=== PATIENT | female | born 1990 | race American Indian/Alaskan Native ===

== ENCOUNTER 2017-06-08 14:28 | Emergency (ER) | payer MEDICAID ==
[2017-06-08 14:54] VITALS: BP 110/81
[2017-06-08] MEDS ORDERED: Sodium Chloride 0.9% 10 ML Syringe FLUSH PRN (15:46)
[2017-06-08] MEDS ORDERED: Sodium Chloride 0.9% 1,000 ML IV ONE (15:53)
[2017-06-08] MEDS ORDERED: Ondansetron 4 MG/2 ML SDV IV ONE ×2 (15:54→17:33)
[2017-06-08] MEDS ORDERED: Morphine 2 MG/ML Syringe IVPUSH ONE (15:54)
[2017-06-08] MEDS ORDERED: Midazolam 1 MG/ML 2 ML SDV IVPUSH ONE ×2 (15:55→16:57)
[2017-06-08] MEDS ORDERED: Lidocaine 1% 30 ML SDV INJECT ONE (15:57)
[2017-06-08 16:21] LABS: CHLORIDE,CL 104 mmol/L (101-111); SODIUM,NA 138 mmol/L (135-145)
[2017-06-08] MEDS ORDERED: Midazolam 1 MG/ML 2 ML SDV ONE (16:43)
--- NOTE | 2017-06-09 14:01 | EDM.PDOC ---
Scribed by Bridget De La Rosa 06/08/17 [id number] for Noelle Spring NP ED HPI GENERAL MEDICAL PROBLEM - General Chief Complaint: Skin Complaint Stated Complaint: BOIL ? Time Seen by Provider: 06/08/17 15:43 Source of Information: Reports: Patient, RN, RN Notes Reviewed History Limitations: Reports: No Limitations - History of Present Illness INITIAL COMMENTS - FREE TEXT/NARRATIVE: Patient presents to ER with complaint of boil to right buttock. She states she thought it was a pimple which began about 5 days ago. Patient rates pain 10/10. She admits to fever/chills. Denies having any sores like this in the past. Duration: Getting Worse Location: Reports: Other (buttock) Quality: Reports: Ache Severity: Severe Improves with: Reports: None Worsens with: Reports: None Associated Symptoms: Reports: No Other Symptoms Right buttock Pain Score (Numeric/FACES): 9 - Related Data Allergies Allergy/AdvReac Type Severity Reaction Status Date / Time cephalexin [Cephalexin] Allergy Hives Verified 06/08/17 14:47 Home Meds: Home Meds Acetaminophen [Tylenol] 650 mg PO Q4H PRN 06/05/16 [History] Ranitidine [Zantac] 150 mg PO BID PRN 06/05/16 [History] Pseudoephedrine HCl [Sudafed 24-Hour] 240 mg PO DAILY PRN 06/08/17 [History] Past Medical History - Past Health History Medical/Surgical History: Denies Medical/Surgical History HEENT History: Reports: None Cardiovascular History: Reports: None Respiratory History: Reports: None Gastrointestinal History: Reports: GERD Genitourinary History: Reports: None 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: 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, , Spontaneous Musculoskeletal History: Reports: None Neurological History: Reports: None Psychiatric History: Reports: Anxiety, Depression Endocrine/Metabolic History: Reports: None Hematologic History: Reports: None Immunologic History: Reports: None Oncologic (Cancer) History: Reports: None Dermatologic History: Reports: Other (See Below) Other Dermatologic History: boils - Infectious Disease History Infectious Disease History: Reports: MRSA - Past Surgical History Head Surgeries/Procedures: Reports: None GI Surgical History: Reports: Cholecystectomy Female Surgical History: Reports: Section Social & Family History - Family History Family Medical History: Noncontributory Cardiac: Reports: Hypertension (Mother Maternal grandmother) OBGYN: Reports: Other (See Below) Neurological: Reports: Migraines (Brother) Endocrine/Metabolic: Reports: Diabetes, type II (Paternal grandmother) - Tobacco Use Smoking Status *Q: Current Every Day Smoker Years of Tobacco use: 2 Packs/Tins Daily: 1 Used Tobacco, but Quit: No Second Hand Smoke Exposure: No - Caffeine Use Caffeine Use: Reports: Soda - Alcohol Use Days Per Week of Alcohol Use: 0 - Recreational Drug Use Recreational Drug Use: No Drug Use in Last 12 Months: Yes Recreational Drug Type: Reports: Marijuana/Hashish Recreational Drug Use Frequency: Monthly Recreational Drug Last Use: 3 weeks ago ED ROS GENERAL - Review of Systems Review Of Systems: ROS reveals no pertinent complaints other than HPI. ED EXAM, SKIN/RASH Exam: See Below Exam Limited By: No Limitations General Appearance: Anxious (very.), Other (Writhing in the bed.) Eye Exam: Bilateral Eye: Normal Inspection Ears: Normal External Exam, Normal Canal, Hearing Grossly Normal, Normal TMs Nose: Normal Inspection, Normal Mucosa, No Blood Throat/Mouth: Normal Inspection, Normal Lips, Normal Teeth, Normal Gums, Normal Oropharynx, Normal Voice, No Airway Compromise Head: Atraumatic, Normocephalic Neck: Normal Inspection, Supple, Non-Tender, Full Range of Motion Respiratory/Chest: No Respiratory Distress, Lungs Clear, Normal Breath Sounds, No Accessory Muscle Use, Chest Non-Tender Cardiovascular: Normal Peripheral Pulses, Regular Rate, Rhythm, No Edema, No Gallop, No JVD, No Murmur, No Rub GI/Abdominal: Normal Bowel Sounds, Soft, Non-Tender, No Organomegaly, No Distention, No Abnormal Bruit, No Mass (Female) Exam: Deferred Rectal (Female) Exam: Deferred Back Exam: Normal Inspection, Full Range of Motion, NT Extremities: Normal Inspection, Normal Range of Motion, Non-Tender, No Pedal Edema, Normal Capillary Refill Neurological: Alert, Oriented, CN II-XII Intact, Normal Cognition, Normal Gait, Normal Reflexes, No Motor/Sensory Deficits Psychiatric: Anxious, Tearful, Other (extra pyrimidial movements.) Skin: Other ([id number] erythema indurate abscess.) Lymphatic: No Adenopathy Course - Vital Signs Last Recorded V/S: Last Vital Signs Temp 97.6 F 06/08/17 14:49 Pulse 142 H 06/08/17 14:49 Resp 24 H 06/08/17 14:49 BP 110/81 06/08/17 14:49 Pulse Ox 100 06/08/17 14:49 - Orders/Labs/Meds Orders: Active Orders 24 hr Category Date Time Status Peripheral IV Care [RC] . DIRECTED Care 06/08/17 15:47 Active CULTURE WOUND [RM] Stat Lab 06/08/17 16:40 Received Sodium Chloride 0.9% [Normal Saline] 1,000 ml Med 06/08/17 15:53 Active IV .BOLUS Sodium Chloride 0.9% [Saline Flush] Med 06/08/17 15:46 Active 10 ml FLUSH ASDIRECTED PRN Peripheral IV Insertion Adult [OM.PC] Stat Oth 06/08/17 15:46 Ordered Medication Orders Sodium Chloride (Normal Saline) 1,000 mls @ 250 mls/hr IV .BOLUS ONE Stop: 06/08/17 19:52 Last Admin: 06/08/17 16:15 Dose: 250 mls/hr Sodium Chloride (Saline Flush) 10 ml FLUSH ASDIRECTED PRN PRN Reason: Keep Vein Open Last Admin: 06/08/17 16:14 Dose: 10 ml Labs: Laboratory Tests 06/08/17 06/08/17 06/08/17 Range/Units 15:54 15:54 15:54 WBC 13.7 H (5.0-10.0) 10^3/uL RBC 4.33 (4.2-5.4) 10^6/uL Hgb 12.2 (12.0-16.0) g/dL Hct 36.3 L (37.0-47.0) % MCV 83.8 D (80-100) fL MCH 28.2 (27.0-34.0) pg MCHC 33.6 (33.0-35.0) g/dL Plt Count 347 (150-450) 10^3/uL Neut % (Auto) 79.2 H (42.2-75.2) % Lymph % (Auto) 12.5 L (20.5-50.1) % Edmonson % (Auto) 7.8 (2-8) % Eos % (Auto) 0.4 L (1.0-3.0) % Baso % (Auto) 0.1 (0.0-1.0) % Sodium 138 (135-145) mmol/L Potassium 3.3 L (3.6-5.0) mmol/L Chloride 104 (101-111) mmol/L Carbon Dioxide 26.0 (21.0-31.0) mmol/L Anion Gap 11.3 BUN 20 H (7-18) mg/dL Creatinine 0.9 (0.6-1.3) mg/dL Est Cr Clr Drug Dosing 74.26 mL/min Estimated GFR (MDRD) > 60 BUN/Creatinine Ratio 22.22 Glucose 81 (74-105) mg/dL Calcium 9.1 (8.4-10.2) mg/dl Total Bilirubin 0.6 (0.2-1.0) mg/dL AST 27 (10-42) IU/L ALT 15 (10-60) IU/L Alkaline Phosphatase 68 (42-121) IU/L Total Protein 7.4 (6.7-8.2) g/dl Albumin 3.9 (3.2-5.5) g/dl Globulin 3.5 Albumin/Globulin Ratio 1.11 Urine Color (YELLOW) Urine Appearance (CLEAR) Urine pH (5.0-9.0) Ur Specific Rudy (1.005-1.030) Urine Protein (NEGATIVE) Urine Glucose (UA) (NEGATIVE) Urine Ketones (NEGATIVE) Urine Occult Blood (NEGATIVE) Urine Nitrite (NEGATIVE) Urine Bilirubin (NEGATIVE) Urine Urobilinogen (0.2-1.0) mg/dL Ur Leukocyte Esterase (NEGATIVE) Urine RBC /HPF Urine WBC (0-5/HPF) /HPF Ur Epithelial Cells /HPF Amorphous Sediment (0/HPF) /HPF Urine Bacteria (0-FEW/HPF) /HPF Urine Mucus /LPF Urine HCG, Qual Urine Opiates Screen (NEGATIVE) Ur Oxycodone Screen (NEGATIVE) Urine Methadone Screen (NEGATIVE) Ur Barbiturates Screen (NEGATIVE) U Tricyclic Antidepress (NEGATIVE) Ur Phencyclidine Scrn (NEGATIVE) Ur Amphetamine Screen (NEGATIVE) U Methamphetamines Scrn (NEGATIVE) Urine MDMA Screen (NEGATIVE) U Benzodiazepines Scrn (NEGATIVE) Urine Cocaine Screen (NEGATIVE) U Marijuana (THC) Screen (NEGATIVE) Ethyl Alcohol < 5 mg/dL 02/25/18 02/25/18 02/25/18 Range/Units 16:00 16:00 16:00 WBC (5.0-10.0) 10^3/uL RBC (4.2-5.4) 10^6/uL Hgb (12.0-16.0) g/dL Hct (37.0-47.0) % MCV (80-100) fL MCH (27.0-34.0) pg MCHC (33.0-35.0) g/dL Plt Count (150-450) 10^3/uL Neut % (Auto) (42.2-75.2) % Lymph % (Auto) (20.5-50.1) % [place]monson % (Auto) (2-8) % Eos % (Auto) (1.0-3.0) % Baso % (Auto) (0.0-1.0) % Sodium (135-145) mmol/L Potassium (3.6-5.0) mmol/L Chloride (101-111) mmol/L Carbon Dioxide (21.0-31.0) mmol/L Anion Gap BUN (7-18) mg/dL Creatinine (0.6-1.3) mg/dL Est Cr Clr Drug Dosing mL/min Estimated GFR (MDRD) BUN/Creatinine Ratio Glucose (74-105) mg/dL Calcium (8.4-10.2) mg/dl Total Bilirubin (0.2-1.0) mg/dL AST (10-42) IU/L ALT (10-60) IU/L Alkaline Phosphatase (42-121) IU/L Total Protein (6.7-8.2) g/dl Albumin (3.2-5.5) g/dl Globulin Albumin/Globulin Ratio Urine Color Lynne (YELLOW) Urine Appearance Cloudy (CLEAR) Urine pH 5.5 (5.0-9.0) Ur Specific Rudy >= 1.030 (1.005-1.030) Urine Protein 100 H (NEGATIVE) Urine Glucose (UA) Negative (NEGATIVE) Urine Ketones 80 H (NEGATIVE) Urine Occult Blood Negative (NEGATIVE) Urine Nitrite Negative (NEGATIVE) Urine Bilirubin Small H (NEGATIVE) Urine Urobilinogen 0.2 (0.2-1.0) mg/dL Ur Leukocyte Esterase Negative (NEGATIVE) Urine RBC 0-5 /HPF Urine WBC 0-5 (0-5/HPF) /HPF Ur Epithelial Cells Moderate H /HPF Amorphous Sediment Few (0/HPF) /HPF Urine Bacteria Few (0-FEW/HPF) /HPF Urine Mucus Few H /LPF Urine HCG, Qual Negative Urine Opiates Screen Negative (NEGATIVE) Ur Oxycodone Screen Negative (NEGATIVE) Urine Methadone Screen Negative (NEGATIVE) Ur Barbiturates Screen Negative (NEGATIVE) U Tricyclic Antidepress Negative (NEGATIVE) Ur Phencyclidine Scrn Negative (NEGATIVE) Ur Amphetamine Screen Positive H (NEGATIVE) U Methamphetamines Scrn Positive H (NEGATIVE) Urine MDMA Screen Positive H (NEGATIVE) U Benzodiazepines Scrn Negative (NEGATIVE) Urine Cocaine Screen Negative (NEGATIVE) U Marijuana (THC) Screen Positive H (NEGATIVE) Ethyl Alcohol mg/dL Meds: Medications Generic Name Dose Route Start Last Admin Trade Name Freq PRN Reason Stop Dose Admin Sodium Chloride 1,000 mls @ 250 mls/hr 06/08/17 15:53 06/08/17 16:15 Normal Saline IV 06/08/17 19:52 250 mls/hr .BOLUS ONE Administration Sodium Chloride 10 ml 06/08/17 15:46 06/08/17 16:14 Saline Flush FLUSH 10 ml ASDIRECTED PRN Administration Keep Vein Open Discontinued Medications Generic Name Dose Route Start Last Admin Trade Name Freq PRN Reason Stop Dose Admin Vancomycin HCl 1 gm/ Sodium 250 mls @ 167 mls/hr 06/08/17 15:54 06/08/17 16: 16 Chloride IV 06/08/17 17:23 167 mls/hr ONETIME ONE Administration Lidocaine HCl 30 ml 06/08/17 15:57 06/08/17 16:16 Xylocaine-Mpf 1% INJECT 06/08/17 15:58 30 ml ONETIME ONE Administration Midazolam HCl 1 mg 06/08/17 15:55 06/08/17 16:14 Versed 1 Mg/Ml IVPUSH 06/08/17 15:56 1 mg ONETIME ONE Administration Midazolam HCl Confirm 06/08/17 16:43 06/08/17 16:59 Versed 1 Mg/Ml Administered 06/08/17 16:44 Not Given Dose 2 mg .ROUTE .STK-MED ONE Midazolam HCl 1 mg 06/08/17 16:57 06/08/17 16:45 Versed 1 Mg/Ml IVPUSH 06/08/17 16:58 1 mg ONETIME ONE Administration Morphine Sulfate 2 mg 06/08/17 15:54 06/08/17 16:15 Morphine IVPUSH 06/08/17 15:55 2 mg ONETIME ONE Administration Ondansetron HCl 4 mg 06/08/17 15:54 06/08/17 16:14 Zofran IV 06/08/17 15:55 4 mg ONETIME ONE Administration Ondansetron HCl 4 mg 06/08/17 17:33 06/08/17 17:37 Zofran IV 06/08/17 17:34 4 mg ONETIME ONE Administration Departure - Departure Time of Disposition: 17:17 Disposition: Home, Self-Care 01 Condition: Fair Clinical Impression: Abscess Cellulitis Qualifiers: Site of cellulitis: buttock Qualified Code(s): L03.317 - Cellulitis of buttock - Discharge Information Instructions: Skin Abscess, [id number], Community-Associated MRSA, Cellulitis , Adult, [id number] Forms: ED Department Discharge Additional Instructions: RX: Doxycycline, Bactroban, Percocet Follow up with your primary care facility right away in the morning. Have dressings changed and wound repacked tomorrow. Tylenol and/or ibuprofen as directed for fever/pain - My Orders Last 24 Hours: My Active Orders 06/08/17 15:46 Sodium Chloride 0.9% [Saline Flush] 10 ml FLUSH ASDIRECTED PRN Peripheral IV Insertion Adult [OM.PC] Stat 06/08/17 15:47 Peripheral IV Care [RC] . DIRECTED 06/08/17 15:53 Sodium Chloride 0.9% [Normal Saline] 1,000 ml IV .BOLUS 06/08/17 16:40 CULTURE WOUND [RM] Stat - Assessment/Plan Last 24 Hours: My Active Orders 06/08/17 15:46 Sodium Chloride 0.9% [Saline Flush] 10 ml FLUSH ASDIRECTED PRN Peripheral IV Insertion Adult [OM.PC] Stat 06/08/17 15:47 Peripheral IV Care [RC] . DIRECTED 06/08/17 15:53 Sodium Chloride 0.9% [Normal Saline] 1,000 ml IV .BOLUS 06/08/17 16:40 CULTURE WOUND [RM] Stat I have read and agree with the documentation that has been completed regarding this visit. By signing this record, I attest that the documentation was completed in my physical presence and is an accurate record of the encounter.
== END 2017-06-08 18:46 | disposition home or self-care (01) ==
LOC: DL.ED 14:28
DX: L03.317 Cellulitis of buttock (principal); L02.31 Cutaneous abscess of buttock; F17.210 Nicotine dependence, cigarettes, uncomplicated; K21.9 Gastro-esophageal reflux disease without esophagitis; F32.9 Major depressive disorder, single episode, unspecified; Z86.14 Personal history of Methicillin resistant Staphylococcus aureus infection; Z79.899 Other long term (current) drug therapy; Z88.1 Allergy status to other antibiotic agents
CPT/HCPCS: 36415; 80053; 80305; 81001; 81025; 85025; 87070; 96365; 96366; 96375; 96376; 99283; G0480; J2250; J2270; J2405; J3370; J7030; J7050; 87077; 87186

== ENCOUNTER 2019-07-09 12:23 | Inpatient (IN) | payer MEDICAID ==
[2019-07-09] MEDS ORDERED: Sodium Chloride 0.9% 1,000 ML IV ONE ×2 (12:46→15:24)
[2019-07-09] MEDS ORDERED: fentaNYL 100 MCG/2 ML SDV IVPUSH ONE (12:59)
[2019-07-09] MEDS: Sodium Chloride 0.9% 10 ML Syringe FLUSH PRN (13:12)
[2019-07-09 14:00] LABS: ANION GAP 14.7 mEq/L (7-13); CHLORIDE,CL 98 mmol/L (98-107); SODIUM,NA 134 mmol/L (136-145)
--- NOTE | 2019-07-09 14:26 | EDM.PDOC ---
ED HPI GENERAL MEDICAL PROBLEM - General Chief Complaint: Abdominal Pain Stated Complaint: APPENDIX Time Seen by Provider: 07/09/19 12:50 Source of Information: Reports: Patient, RN, RN Notes Reviewed History Limitations: Reports: No Limitations - History of Present Illness INITIAL COMMENTS - FREE TEXT/NARRATIVE: Patient presents to ER with complaint of severe abdominal pain which she rates at 10/10. Patient states it began 2 nights ago and has progressively gotten worse. Patient admits still having her appendix, denies having her gallbladder. She states she is currently having her menses and no chances of . Patient states she feels feverish and has had chills, is nauseated with the pain denies vomiting or diarrhea. He states she has had problems with urinary tract infections and kidney infections in the past. States pain is in the pelvic area just above the pubic bone radiating up to the belly button and has some right CVA tenderness as well. Patient states she has only been with one sexual partner. Declines pelvic exam at this time, denies any chances of STI. Onset: Gradual Onset Date: 07/07/19 Abdominal Pain Score (Numeric/FACES): 10 - Related Data Allergies Allergy/AdvReac Type Severity Reaction Status Date / Time cephalexin [Cephalexin] Allergy Hives Verified 06/08/17 14:47 Home Meds: Home Meds Acetaminophen [Tylenol] 650 mg PO Q4H PRN 06/05/16 [History] Ranitidine [Zantac] 150 mg PO BID PRN 06/05/16 [History] Pseudoephedrine HCl [Sudafed 24-Hour] 240 mg PO DAILY PRN 06/08/17 [History] Past Medical History - Past Health History Medical/Surgical History: Denies Medical/Surgical History HEENT History: Reports: None Cardiovascular History: Reports: None Respiratory History: Reports: None Gastrointestinal History: Reports: GERD Genitourinary History: Reports: None [employer] History: Reports: PID, , Spontaneous Musculoskeletal History: Reports: None Neurological History: Reports: None Psychiatric History: Reports: Anxiety, Depression Endocrine/Metabolic History: Reports: None Hematologic History: Reports: None Immunologic History: Reports: None Oncologic (Cancer) History: Reports: None Dermatologic History: Reports: Other (See Below) Other Dermatologic History: boils - Infectious Disease History Infectious Disease History: Reports: MRSA - Past Surgical History Head Surgeries/Procedures: Reports: None GI Surgical History: Reports: Cholecystectomy Female Surgical History: Reports: Section Social & Family History - Family History Family Medical History: Noncontributory Cardiac: Reports: Hypertension OBGYN: Reports: Other (See Below) Neurological: Reports: Migraines Endocrine/Metabolic: Reports: Diabetes, type II - Tobacco Use Smoking Status *Q: Current Every Day Smoker Years of Tobacco use: 13 Packs/Tins Daily: 1 - Caffeine Use Caffeine Use: Reports: Coffee, Soda - Recreational Drug Use Recreational Drug Use: Yes Recreational Drug Type: Reports: Marijuana/Hashish ED ROS GENERAL - Review of Systems Review Of Systems: Comprehensive ROS is negative, except as noted in HPI. ED EXAM, GI/ABD - Physical Exam Exam: See Below Exam Limited By: No Limitations General Appearance: Alert, WD/WN, Anxious, Moderate Distress Eyes: Bilateral: Normal Appearance, EOMI Ears: Normal External Exam, Hearing Grossly Normal Nose: Normal Inspection, Normal Mucosa, No Blood Throat/Mouth: Normal Inspection, Normal Lips, Normal Teeth, Normal Gums, Normal Oropharynx, Normal Voice, No Airway Compromise Head: Atraumatic, Normocephalic Neck: Normal Inspection, Supple, Non-Tender, Full Range of Motion Respiratory/Chest: No Respiratory Distress, Lungs Clear, Normal Breath Sounds, No Accessory Muscle Use, Chest Non-Tender Cardiovascular: Normal Peripheral Pulses, Regular Rate, Rhythm, No Edema, No Gallop, No JVD, No Murmur, No Rub GI/Abdominal Exam: Normal Bowel Sounds, Soft, No Organomegaly, No Distention, No Abnormal Bruit, No Mass, Pelvis Stable, Tender (pelvic area, RLQ, LLQ) (Female) Exam: Deferred Rectal (Female) Exam: Deferred Back Exam: Normal Inspection, Full Range of Motion, CVA Tenderness (R) Extremities: Normal Inspection, Normal Range of Motion, Non-Tender, Normal Capillary Refill, No Pedal Edema Neurological: Alert, Oriented, CN II-XII Intact, Normal Cognition, Normal Gait, Normal Reflexes, No Motor/Sensory Deficits Psychiatric: Anxious, Tearful Skin Exam: Warm, Dry, Intact, Normal Color, No Rash Lymphatic: No Adenopathy Course - Vital Signs Last Recorded V/S: Last Vital Signs Temp 97.7 F 07/09/19 12:38 Pulse 105 H 07/09/19 12:38 Resp 14 07/09/19 12:38 BP 110/74 07/09/19 12:38 Pulse Ox 100 07/09/19 12:38 - Orders/Labs/Meds Orders: Active Orders 24 hr Category Date Time Status Admission Diagnosis [ADT] Stat ADT 07/09/19 15:24 Ordered Admission Status [Patient Status] [ADT] Routine ADT 07/09/19 15:25 Active Peripheral IV Care [RC] . DIRECTED Care 07/09/19 12:46 Active CULTURE BLOOD [BC] Stat Lab 07/09/19 13:30 Results CULTURE BLOOD [BC] Stat Lab 07/09/19 13:35 Results CULTURE URINE [RM] Stat Lab 07/09/19 12:31 Received Ciprofloxacin in D5W [Cipro in D5W 400 MG/200 ML] 400 Med 07/09/19 15:23 Active mg Premix Bag 1 bag IV ONETIME Sodium Chloride 0.9% [Normal Saline] 1,000 ml Med 07/09/19 15:24 Active IV .BOLUS Sodium Chloride 0.9% [Saline Flush] Med 07/09/19 12:46 Active 10 ml FLUSH ASDIRECTED PRN metroNIDAZOLE/Normal Saline [Flagyl 500 MG in NS 100 ML Med 07/09/19 15:24 Active ] 500 mg Premix Bag 100 bag IV ONETIME Blood Culture x2 Reflex Set [OM.PC] Stat Oth 07/09/19 13:24 Ordered Peripheral IV Insertion Adult [OM.PC] Stat Oth 07/09/19 12:45 Ordered Medication Orders Ciprofloxacin/Dextrose 400 mg/ (Premix) 200 mls @ 200 mls/hr IV ONETIME ONE Stop: 07/09/19 16:22 Metronidazole 500 mg/ Premix 100 mls @ 100 mls/hr IV ONETIME ONE Stop: 07/09/19 16:23 Sodium Chloride (Normal Saline) 1,000 mls @ 150 mls/hr IV .BOLUS ONE Stop: 07/09/19 22:03 Sodium Chloride (Saline Flush) 10 ml FLUSH ASDIRECTED PRN PRN Reason: Keep Vein Open Last Admin: 07/09/19 13:12 Dose: 10 ml Labs: Laboratory Tests 07/09/19 07/09/19 07/09/19 Range/Units 12:31 12:31 12:31 WBC (5.0-10.0) 10^3/uL RBC (4.2-5.4) 10^6/uL Hgb (12.0-16.0) g/dL Hct (37.0-47.0) % MCV (80-100) fL MCH (27.0-34.0) pg MCHC (33.0-35.0) g/dL Plt Count (150-450) 10^3/uL Neut % (Auto) (42.2-75.2) % Lymph % (Auto) (20.5-50.1) % [place] % (Auto) (2-8) % Eos % (Auto) (1.0-3.0) % Baso % (Auto) (0.0-1.0) % Sodium (136-145) mmol/L Potassium (3.5-5.1) mmol/L Chloride (98-107) mmol/L Carbon Dioxide (21-32) mmol/L Anion Gap (7-13) mEq/L BUN (7-18) mg/dL Creatinine (0.55-1.02) mg/dL Est Cr Clr Drug Dosing mL/min Estimated GFR (MDRD) BUN/Creatinine Ratio (No establ ref range) Glucose (74-99) mg/dL Lactic Acid (0.4-2.0) mmol/L Calcium (8.5-10.1) mg/dL Total Bilirubin (0.2-1.0) mg/dL AST (15-37) U/L ALT (14-59) U/L Alkaline Phosphatase (46-116) U/L Total Protein (6.4-8.2) g/dL Albumin (3.4-5.0) g/dL Globulin Albumin/Globulin Ratio Urine Color Yellow (YELLOW) Urine Appearance Slightly cloudy (CLEAR) Urine pH 5.5 (5.0-9.0) Ur Specific [place] 1.025 (1.005-1.030) Urine Protein Negative (NEGATIVE) Urine Glucose (UA) Negative (NEGATIVE) Urine Ketones Negative (NEGATIVE) Urine Occult Blood Small H (NEGATIVE) Urine Nitrite Negative (NEGATIVE) Urine Bilirubin Negative (NEGATIVE) Urine Urobilinogen 1.0 (0.2-1.0) mg/dL Ur Leukocyte Esterase Small H (NEGATIVE) Urine RBC 0-5 /HPF Urine WBC 20-30 H (0-5/HPF) /HPF Ur Epithelial Cells Moderate H (NOT SEEN) /HPF Urine Bacteria Few (0-FEW/HPF) /HPF Urine Mucus Rare (NOT SEEN) /LPF Urine HCG, Qual Negative Urine Opiates Screen Negative (NEGATIVE) Ur Oxycodone Screen Negative (NEGATIVE) Urine Methadone Screen Negative (NEGATIVE) Ur Barbiturates Screen Negative (NEGATIVE) U Tricyclic Antidepress Negative (NEGATIVE) Ur Phencyclidine Scrn Negative (NEGATIVE) Ur Amphetamine Screen Positive H (NEGATIVE) U Methamphetamines Scrn Positive H (NEGATIVE) Urine MDMA Screen Negative (NEGATIVE) U Benzodiazepines Scrn Negative (NEGATIVE) Urine Cocaine Screen Negative (NEGATIVE) U Marijuana (THC) Screen Positive H (NEGATIVE) 07/09/19 07/09/19 07/09/19 Range/Units 13:04 13:04 13:04 WBC 22.4 H (5.0-10.0) 10^3/uL RBC 4.41 (4.2-5.4) 10^6/uL Hgb 14.0 D (12.0-16.0) g/dL Hct 40.7 (37.0-47.0) % MCV 92.3 D (80-100) fL MCH 31.7 (27.0-34.0) pg MCHC 34.4 (33.0-35.0) g/dL Plt Count 261 D (150-450) 10^3/uL Neut % (Auto) 94.1 H (42.2-75.2) % Lymph % (Auto) 3.4 L (20.5-50.1) % [place] % (Auto) 2.5 (2-8) % Eos % (Auto) 0.0 L (1.0-3.0) % Baso % (Auto) 0.0 (0.0-1.0) % Sodium 134 L (136-145) mmol/L Potassium 3.7 (3.5-5.1) mmol/L Chloride 98 (98-107) mmol/L Carbon Dioxide 25 (21-32) mmol/L Anion Gap 14.7 H (7-13) mEq/L BUN 11 (7-18) mg/dL Creatinine 0.83 (0.55-1.02) mg/dL Est Cr Clr Drug Dosing 86.36 mL/min Estimated GFR (MDRD) > 60 BUN/Creatinine Ratio 13.3 (No establ ref range) Glucose 99 (74-99) mg/dL Lactic Acid 1.7 (0.4-2.0) mmol/L Calcium 7.9 L (8.5-10.1) mg/dL Total Bilirubin 0.8 (0.2-1.0) mg/dL AST 30 (15-37) U/L ALT 60 H (14-59) U/L Alkaline Phosphatase 80 (46-116) U/L Total Protein 7.2 (6.4-8.2) g/dL Albumin 3.8 (3.4-5.0) g/dL Globulin 3.4 Albumin/Globulin Ratio 1.1 Urine Color (YELLOW) Urine Appearance (CLEAR) Urine pH (5.0-9.0) Ur Specific [place] (1.005-1.030) Urine Protein (NEGATIVE) Urine Glucose (UA) (NEGATIVE) Urine Ketones (NEGATIVE) Urine Occult Blood (NEGATIVE) Urine Nitrite (NEGATIVE) Urine Bilirubin (NEGATIVE) Urine Urobilinogen (0.2-1.0) mg/dL Ur Leukocyte Esterase (NEGATIVE) Urine RBC /HPF Urine WBC (0-5/HPF) /HPF Ur Epithelial Cells (NOT SEEN) /HPF Urine Bacteria (0-FEW/HPF) /HPF Urine Mucus (NOT SEEN) /LPF Urine HCG, Qual Urine Opiates Screen (NEGATIVE) Ur Oxycodone Screen (NEGATIVE) Urine Methadone Screen (NEGATIVE) Ur Barbiturates Screen (NEGATIVE) U Tricyclic Antidepress (NEGATIVE) Ur Phencyclidine Scrn (NEGATIVE) Ur Amphetamine Screen (NEGATIVE) U Methamphetamines Scrn (NEGATIVE) Urine MDMA Screen (NEGATIVE) U Benzodiazepines Scrn (NEGATIVE) Urine Cocaine Screen (NEGATIVE) U Marijuana (THC) Screen (NEGATIVE) Meds: Medications Generic Name Dose Route Start Last Admin Trade Name Freq PRN Reason Stop Dose Admin Ciprofloxacin/Dextrose 400 mg/ 200 mls @ 200 mls/hr 07/09/19 15:23 Premix IV 07/09/19 16:22 ONETIME ONE Metronidazole 500 mg/ Premix 100 mls @ 100 mls/hr 07/09/19 15:24 IV 07/09/19 16:23 ONETIME ONE Sodium Chloride 1,000 mls @ 150 mls/hr 07/09/19 15:24 Normal Saline IV 07/09/19 22:03 .BOLUS ONE Sodium Chloride 10 ml 07/09/19 12:46 07/09/19 13:12 Saline Flush FLUSH 10 ml ASDIRECTED PRN Administration Keep Vein Open Discontinued Medications Generic Name Dose Route Start Last Admin Trade Name Annie PRN Reason Stop Dose Admin Fentanyl 50 mcg 07/09/19 12:59 07/09/19 13:12 Sublimaze IVPUSH 07/09/19 13:00 50 mcg ONETIME ONE Administration Sodium Chloride 1,000 mls @ 999 mls/hr 07/09/19 12:46 07/09/19 13:12 Normal Saline IV 07/09/19 13:46 999 mls/hr .BOLUS ONE Administration Iopamidol 100 ml 07/09/19 14:33 07/09/19 14:35 Isovue-300 (61%) IVPUSH 07/09/19 14:34 75 ml ONETIME ONE Administration - Radiology Interpretation Free Text/Narrative:: CT Abdomen/Pelvis with contrast: 1. Lung bases are clear. Normal cardiac silhouette. Normal caliber lower thoracic and abdominal aorta. Normal lumbar spine. 2. Surgically absent gallbladder, clips in the fossa RUQ. No pancreatitis. 3. Liver, stomach, spleen, pancreas, adrenal glands, and kidneys unremarkable. No sign of renal cortical mass lesion, nephrolithiasis, or obstructive uropathy. Symmerically distended normal urinary bladder. 4. Midline uterus unremarkable. No abnormal adnexal mass lesions or fluid in the cul-de-sac. 5. No abdominal or pelvic mass lesion, inflammatory, dirty, peritoneal fat, mechanical bowel obstruction, ascites or free air. 6. Surgical clip RLQ, apparent appendectomy. 7. No ventral wall, umbilical or inguinal hernias. Conclusion: Cholecystectomy. Appendectomy. Fluid-filled intestines suggesting possible gastroenteritis. Clinical? Emergency CT scan abdomen and pelvis otherwise unremarkable i.e. Negative See rad report Departure - Departure Time of Disposition: 15:26 Disposition: Admitted As Inpatient 66 Condition: Fair Clinical Impression: Gastroenteritis, Abdominal pain - Discharge Information *PRESCRIPTION DRUG MONITORING PROGRAM REVIEWED*: No *COPY OF PRESCRIPTION DRUG MONITORING REPORT IN PATIENT MIAN: No Forms: ED Department Discharge Sepsis Event Note - Evaluation Sepsis Screening Result: No Definite Risk - Focused Exam Vital Signs: Vital Signs Temp Pulse Resp BP Pulse Ox 07/09/19 12:38 97.7 F 105 H 14 110/74 100 Date Exam was Performed: 07/09/19 Time Exam was Performed: 15:26 - My Orders Last 24 Hours: My Active Orders 07/09/19 12:31 CULTURE URINE [RM] Stat 07/09/19 12:45 Peripheral IV Insertion Adult [OM.PC] Stat 07/09/19 12:46 Peripheral IV Care [RC] . DIRECTED Sodium Chloride 0.9% [Saline Flush] 10 ml FLUSH ASDIRECTED PRN 07/09/19 13:24 Blood Culture x2 Reflex Set [OM.PC] Stat 07/09/19 13:30 CULTURE BLOOD [BC] Stat 07/09/19 13:35 CULTURE BLOOD [BC] Stat 07/09/19 15:23 Ciprofloxacin in D5W [Cipro in D5W 400 MG/200 ML] 400 mg Premix Bag 1 bag IV ONETIME 07/09/19 15:24 Admission Diagnosis [ADT] Stat Sodium Chloride 0.9% [Normal Saline] 1,000 ml IV .BOLUS metroNIDAZOLE/Normal Saline [Flagyl 500 MG in NS 100 ML] 500 mg Premix Bag 100 bag IV ONETIME 07/09/19 15:25 Admission Status [Patient Status] [ADT] Routine - Assessment/Plan Last 24 Hours: My Active Orders 07/09/19 12:31 CULTURE URINE [RM] Stat 07/09/19 12:45 Peripheral IV Insertion Adult [OM.PC] Stat 07/09/19 12:46 Peripheral IV Care [RC] . DIRECTED Sodium Chloride 0.9% [Saline Flush] 10 ml FLUSH ASDIRECTED PRN 07/09/19 13:24 Blood Culture x2 Reflex Set [OM.PC] Stat 07/09/19 13:30 CULTURE BLOOD [BC] Stat 07/09/19 13:35 CULTURE BLOOD [BC] Stat 07/09/19 15:23 Ciprofloxacin in D5W [Cipro in D5W 400 MG/200 ML] 400 mg Premix Bag 1 bag IV ONETIME 07/09/19 15:24 Admission Diagnosis [ADT] Stat Sodium Chloride 0.9% [Normal Saline] 1,000 ml IV .BOLUS metroNIDAZOLE/Normal Saline [Flagyl 500 MG in NS 100 ML] 500 mg Premix Bag 100 bag IV ONETIME 07/09/19 15:25 Admission Status [Patient Status] [ADT] Routine
[2019-07-09] MEDS ORDERED: Iopamidol 612 MG/ML 100 ML Bottle IVPUSH ONE (14:33)
--- NOTE | 2019-07-09 14:49 | CT ---
EXAMINATION: Abdomen Pelvis w Cont SEX: Female AGE: 29 years CLINICAL HISTORY: 29-year-old female smoker complaining of severe abdominal pain (Previous cholecystectomy). Scan technique: Volume acquisition of data emergency CT scan of the abdomen and pelvis obtained without oral contrast but during the intravenous administration 75 cc nonionic Isovue contrast (2.5 cc/s via injector) while patient was lying supine on the Siemens multislice scanner [place], [place]. All data archived in the PACS system for storage, reformatting axial/sagittal/coronal planes and study. Interpretation: 1. Lung bases are clear. Normal cardiac silhouette. Normal caliber lower thoracic and abdominal aorta. Normal lumbar spine. 2. Surgically absent gallbladder (clips in the fossa RUQ). No pancreatitis. 3. Liver, stomach, spleen, pancreas, adrenal glands and kidneys unremarkable. No sign of renal cortical mass lesion, nephrolithiasis or obstructive uropathy. Symmetrically distended normal urinary bladder. 4. Midline uterus unremarkable. No abnormal adnexal mass lesions or fluid in the cul-de-sac. 5. No abdominal or pelvic mass lesion, inflammatory "dirty" peritoneal fat, mechanical bowel obstruction, ascites or free air. 6. Surgical clip RLQ (apparent appendectomy). 7. No ventral wall, umbilical or inguinal hernias. CONCLUSION: Cholecystectomy. Appendectomy. Fluid-filled intestine suggesting possible gastroenteritis. Clinical? Emergency CT scan abdomen and pelvis otherwise unremarkable i.e. negative.
[2019-07-09] MEDS ORDERED: Ciprofloxacin in D5W 400 MG in Premix Bag 1 BAG IV ONE ×2 (15:23)
[2019-07-09] MEDS ORDERED: metroNIDAZOLE/Normal Saline 500 MG in Premix Bag 100 BAG IV ONE (15:24)
[2019-07-09] MEDS ORDERED: Acetaminophen 325 MG Tab PO PRN (16:15)
--- NOTE | 2019-07-09 16:34 | PCM.HP ---
H&P History of Present Illness - General Date of Service: 07/09/19 Admit Problem/Dx: Admission Diagnosis/Problem Admission Diagnosis/Problem Gastroenteritis Source of Information: Patient History Limitations: Reports: No Limitations - History of Present Illness Initial Comments - Free Text/Narative: Gaby is 29-year-old female with h/o substance abuse (tobacco and marijuana), s /p cholecystectomy and appendectomy who presented today to ED for evaluation of abdominal pain. Patient reports abdominal pain has started last night. She described abdominal pain as sharp, diffuse, about 8/10 in severity, constant, nonradiating. Associated with nausea without vomiting. Reports subjective fever and chills. Had one episode of diarrhea in the ED. No melena, hematemesis or hematochezia. She denies dysuria, frequency, vagina discharge. She reports she is currently having her menstrual period. She has no history of STI. The ED vitals are remarkable. WBC 22.4 with left shift, aniongap gap 14.7, a few bacteria, U tox positive for methamphetamine, amphetamine and marijuana. CT abdomen and pelvis with contrast suggestive of gastroenteritis. Onset of Symptoms: Reports: Gradual Duration of Symptoms: Reports: Day(s): Location: Reports: Abdomen Quality: Reports: Sharp Severity: Severe Improves with: Reports: None Worsens with: Reports: None Context: Reports: Other (none) Abdominal Pain Score (Numeric/FACES): 10 - Related Data Allergies/Adverse Reactions: Allergies Allergy/AdvReac Type Severity Reaction Status Date / Time cephalexin [Cephalexin] Allergy Hives Verified 07/09/19 15:55 Home Medications: Home Meds . 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 Musculoskeletal History: Reports: None Neurological History: Reports: None Psychiatric History: Reports: Anxiety, Depression Endocrine/Metabolic History: Reports: None Hematologic History: Reports: None Immunologic History: Reports: None Oncologic (Cancer) History: Reports: None Dermatologic History: Reports: Other (See Below) Other Dermatologic History: boils - Infectious Disease History Infectious Disease History: Reports: MRSA - Past Surgical History Head Surgeries/Procedures: Reports: None GI Surgical History: Reports: Cholecystectomy Female Surgical History: Reports: Section Social & Family History - Family History Family Medical History: Noncontributory Cardiac: Reports: Hypertension OBGYN: Reports: Other (See Below) Neurological: Reports: Migraines Endocrine/Metabolic: Reports: Diabetes, type II - Tobacco Use Smoking Status *Q: Current Every Day Smoker Years of Tobacco use: 13 Packs/Tins Daily: 1 - Caffeine Use Caffeine Use: Reports: Coffee, Soda - Recreational Drug Use Recreational Drug Use: Yes Recreational Drug Type: Reports: Marijuana/Hashish H&P Review of Systems - Review of Systems: Review Of Systems: See Below General: Reports: Fever, Chills, Weakness HEENT: Reports: No Symptoms Pulmonary: Reports: No Symptoms Cardiovascular: Reports: No Symptoms Gastrointestinal: Reports: Abdominal Pain, Anorexia, Diarrhea, Nausea Genitourinary: Reports: No Symptoms Musculoskeletal: Reports: No Symptoms Skin: Reports: No Symptoms Psychiatric: Reports: No Symptoms Neurological: Reports: No Symptoms Hematologic/Lymphatic: Reports: No Symptoms Immunologic: Reports: No Symptoms Exam - Exam Exam: See Below - Vital Signs Vital Signs: Last Vital Signs Temp 100.9 F H 07/09/19 15:52 Pulse 114 H 07/09/19 15:52 Resp 28 H 07/09/19 15:52 BP 116/72 07/09/19 15:52 Pulse Ox 100 07/09/19 15:52 Weight: 128 lb 12.8 oz - Exam General: Alert, Oriented, 4 HEENT: PERRLA, Hearing Intact, Mucosa Moist & Denio, Nares Patent, Normal Nasal Septum, Posterior Pharynx Clear, Conjunctiva Clear, EOMI, EACs Clear, TMs Clear Neck: Supple, Trachea Midline, 2 Lungs: Clear to Auscultation, Normal Respiratory Effort Cardiovascular: Regular Rate, Regular Rhythm GI/Abdominal Exam: Normal Bowel Sounds, Soft, No Organomegaly, No Distention, No Abnormal Bruit, No Mass, Pelvis Stable, Tender (diffuse) (Female) Exam: Normal External Exam, Normal Speculum Exam, Normal Bimanual Exam Rectal (Female) Exam: Normal Exam, Normal Rectal Tone Back Exam: Normal Inspection, Full Range of Motion, NT Extremities: Normal Inspection, Normal Range of Motion, Non-Tender, No Pedal Edema, Normal Capillary Refill Skin: Warm, Dry, Intact Neurological: Cranial Nerves Intact, Reflexes Equal Bilateral Neuro Extensive - Mental Status: Alert, Oriented x3, Normal Mood/Affect, Normal Cognition Neuro Extensive - Motor, Sensory, Reflexes: CN II-XII Intact, Normal Gait, Normal Reflexes Psychiatric: Alert, Normal Affect, Normal Mood - Patient Data Lab Results Last 24 hrs: Laboratory Results - last 24 hr 07/09/19 07/09/19 07/09/19 Range/Units 12:31 12:31 12:31 WBC (5.0-10.0) 10^3/uL RBC (4.2-5.4) 10^6/uL Hgb (12.0-16.0) g/dL Hct (37.0-47.0) % MCV (80-100) fL MCH (27.0-34.0) pg MCHC (33.0-35.0) g/dL Plt Count (150-450) 10^3/uL Neut % (Auto) (42.2-75.2) % Lymph % (Auto) (20.5-50.1) % Bremer % (Auto) (2-8) % Eos % (Auto) (1.0-3.0) % Baso % (Auto) (0.0-1.0) % Sodium (136-145) mmol/L Potassium (3.5-5.1) mmol/L Chloride (98-107) mmol/L Carbon Dioxide (21-32) mmol/L Anion Gap (7-13) mEq/L BUN (7-18) mg/dL Creatinine (0.55-1.02) mg/dL Est Cr Clr Drug Dosing mL/min Estimated GFR (MDRD) BUN/Creatinine Ratio (No establ ref range) Glucose (74-99) mg/dL Lactic Acid (0.4-2.0) mmol/L Calcium (8.5-10.1) mg/dL Total Bilirubin (0.2-1.0) mg/dL AST (15-37) U/L ALT (14-59) U/L Alkaline Phosphatase (46-116) U/L Total Protein (6.4-8.2) g/dL Albumin (3.4-5.0) g/dL Globulin Albumin/Globulin Ratio Urine Color Yellow (YELLOW) Urine Appearance Slightly cloudy (CLEAR) Urine pH 5.5 (5.0-9.0) Ur Specific [place] 1.025 (1.005-1.030) Urine Protein Negative (NEGATIVE) Urine Glucose (UA) Negative (NEGATIVE) Urine Ketones Negative (NEGATIVE) Urine Occult Blood Small H (NEGATIVE) Urine Nitrite Negative (NEGATIVE) Urine Bilirubin Negative (NEGATIVE) Urine Urobilinogen 1.0 (0.2-1.0) mg/dL Ur Leukocyte Esterase Small H (NEGATIVE) Urine RBC 0-5 /HPF Urine WBC 20-30 H (0-5/HPF) /HPF Ur Epithelial Cells Moderate H (NOT SEEN) /HPF Urine Bacteria Few (0-FEW/HPF) /HPF Urine Mucus Rare (NOT SEEN) /LPF Urine HCG, Qual Negative Urine Opiates Screen Negative (NEGATIVE) Ur Oxycodone Screen Negative (NEGATIVE) Urine Methadone Screen Negative (NEGATIVE) Ur Barbiturates Screen Negative (NEGATIVE) U Tricyclic Antidepress Negative (NEGATIVE) Ur Phencyclidine Scrn Negative (NEGATIVE) Ur Amphetamine Screen Positive H (NEGATIVE) U Methamphetamines Scrn Positive H (NEGATIVE) Urine MDMA Screen Negative (NEGATIVE) U Benzodiazepines Scrn Negative (NEGATIVE) Urine Cocaine Screen Negative (NEGATIVE) U Marijuana (THC) Screen Positive H (NEGATIVE) 07/09/19 07/09/19 07/09/19 Range/Units 13:04 13:04 13:04 WBC 22.4 H (5.0-10.0) 10^3/uL RBC 4.41 (4.2-5.4) 10^6/uL Hgb 14.0 D (12.0-16.0) g/dL Hct 40.7 (37.0-47.0) % MCV 92.3 D (80-100) fL MCH 31.7 (27.0-34.0) pg MCHC 34.4 (33.0-35.0) g/dL Plt Count 261 D (150-450) 10^3/uL Neut % (Auto) 94.1 H (42.2-75.2) % Lymph % (Auto) 3.4 L (20.5-50.1) % Bremer % (Auto) 2.5 (2-8) % Eos % (Auto) 0.0 L (1.0-3.0) % Baso % (Auto) 0.0 (0.0-1.0) % Sodium 134 L (136-145) mmol/L Potassium 3.7 (3.5-5.1) mmol/L Chloride 98 (98-107) mmol/L Carbon Dioxide 25 (21-32) mmol/L Anion Gap 14.7 H (7-13) mEq/L BUN 11 (7-18) mg/dL Creatinine 0.83 (0.55-1.02) mg/dL Est Cr Clr Drug Dosing 86.36 mL/min Estimated GFR (MDRD) > 60 BUN/Creatinine Ratio 13.3 (No establ ref range) Glucose 99 (74-99) mg/dL Lactic Acid 1.7 (0.4-2.0) mmol/L Calcium 7.9 L (8.5-10.1) mg/dL Total Bilirubin 0.8 (0.2-1.0) mg/dL AST 30 (15-37) U/L ALT 60 H (14-59) U/L Alkaline Phosphatase 80 (46-116) U/L Total Protein 7.2 (6.4-8.2) g/dL Albumin 3.8 (3.4-5.0) g/dL Globulin 3.4 Albumin/Globulin Ratio 1.1 Urine Color (YELLOW) Urine Appearance (CLEAR) Urine pH (5.0-9.0) Ur Specific [place] (1.005-1.030) Urine Protein (NEGATIVE) Urine Glucose (UA) (NEGATIVE) Urine Ketones (NEGATIVE) Urine Occult Blood (NEGATIVE) Urine Nitrite (NEGATIVE) Urine Bilirubin (NEGATIVE) Urine Urobilinogen (0.2-1.0) mg/dL Ur Leukocyte Esterase (NEGATIVE) Urine RBC /HPF Urine WBC (0-5/HPF) /HPF Ur Epithelial Cells (NOT SEEN) /HPF Urine Bacteria (0-FEW/HPF) /HPF Urine Mucus (NOT SEEN) /LPF Urine HCG, Qual Urine Opiates Screen (NEGATIVE) Ur Oxycodone Screen (NEGATIVE) Urine Methadone Screen (NEGATIVE) Ur Barbiturates Screen (NEGATIVE) U Tricyclic Antidepress (NEGATIVE) Ur Phencyclidine Scrn (NEGATIVE) Ur Amphetamine Screen (NEGATIVE) U Methamphetamines Scrn (NEGATIVE) Urine MDMA Screen (NEGATIVE) U Benzodiazepines Scrn (NEGATIVE) Urine Cocaine Screen (NEGATIVE) U Marijuana (THC) Screen (NEGATIVE) Result Diagrams: 07/09/19 13:04 07/09/19 13:04 Anant Results Last 24 hrs: Microbiology 07/09/19 13:30 Anaerobic Blood Culture - Final Blood - Venous 07/09/19 13:35 Anaerobic Blood Culture - Final Blood - Venous - Lab Draw Problem List Initiated/Reviewed/Updated: Yes Orders Last 24hrs: Active Orders 24 hr Category Date Time Status Admission Diagnosis [ADT] Stat ADT 07/09/19 15:24 Ordered Admission Status [Patient Status] [ADT] Routine ADT 07/09/19 15:25 Active Ambulate [RC] ASDIRECTED Care 07/09/19 16:15 Ordered Height and Weight [RC] DAILY Care 07/09/19 16:15 Ordered Intake and Output [RC] QSHIFT Care 07/09/19 16:15 Ordered Notify Provider Vital Signs [RC] ASDIRECTED Care 07/09/19 16:16 Ordered Oxygen Therapy [RC] PRN Care 07/09/19 16:15 Ordered Peripheral IV Care [RC] ,21 Care 07/09/19 12:46 Active VTE/DVT Education [RC] PER UNIT ROUTINE Care 07/09/19 16:15 Ordered Vital Signs [RC] Q4H Care 07/09/19 16:15 Ordered Regular Diet [DIET] Diet 07/09/19 Dinner Ordered CBC W/O DIFF,HEMOGRAM [HEME] DAILY Lab 07/10/19 07:00 Ordered CBC W/O DIFF,HEMOGRAM [HEME] DAILY Lab 07/11/19 07:00 Ordered COMPREHENSIVE METABOLIC PN,CMP [CHEM] DAILY Lab 07/10/19 07:00 Ordered COMPREHENSIVE METABOLIC PN,CMP [CHEM] DAILY Lab 07/11/19 07:00 Ordered CULTURE BLOOD [BC] Stat Lab 07/09/19 13:30 Results CULTURE BLOOD [BC] Stat Lab 07/09/19 13:35 Results CULTURE URINE [RM] Stat Lab 07/09/19 12:31 Received MAGNESIUM [CHEM] Routine Lab 07/09/19 16:15 Ordered PHOSPHORUS [CHEM] Routine Lab 07/09/19 16:15 Ordered Acetaminophen [Tylenol] Med 07/09/19 16:15 Ordered 650 mg PO Q4H PRN Ciprofloxacin in D5W [Cipro in D5W 400 MG/200 ML] 400 Med 07/09/19 15:23 Active mg Premix Bag 1 bag IV ONETIME Ciprofloxacin in D5W [Cipro in D5W 400 MG/200 ML] 400 Med 07/09/19 22:00 Ordered mg Premix Bag 1 bag IV Q8HR Heparin Sodium Med 07/09/19 21:00 Ordered 5,000 units SUBCUT Q12HR Lactated Ringers @ 125 MLS/HR(1000ml) Med 07/09/19 16:15 Ordered Lactated Ringers [Ringers, Lactated] 1,000 ml IV ASDIRECTED Sodium Chloride 0.9% [Normal Saline] 1,000 ml Med 07/09/19 15:24 Active IV .BOLUS Sodium Chloride 0.9% [Saline Flush] Med 07/09/19 12:46 Active 10 ml FLUSH ASDIRECTED PRN metroNIDAZOLE/Normal Saline [Flagyl 500 MG in NS 100 ML Med 07/09/19 15:24 Active ] 500 mg Premix Bag 100 bag IV ONETIME metroNIDAZOLE/Normal Saline [Flagyl 500 MG in NS 100 ML Med 07/09/19 22:30 Ordered ] 500 mg Premix Bag 100 bag IV Q8H oxyCODONE Med 07/09/19 16:15 Ordered 5 mg PO Q6H PRN Blood Culture x2 Reflex Set [OM.PC] Stat Oth 07/09/19 13:24 Ordered Peripheral IV Insertion Adult [OM.PC] Stat Oth 07/09/19 12:45 Ordered Resuscitation Status Routine Resus Stat 07/09/19 16:15 Ordered Medication Orders Acetaminophen (Tylenol) 650 mg PO Q4H PRN PRN Reason: Pain (Mild 1-3)/fever Heparin Sodium (Porcine) (Heparin Sodium) 5,000 units SUBCUT Q12HR JONAS Ciprofloxacin/Dextrose 400 mg/ (Premix) 200 mls @ 200 mls/hr IV ONETIME ONE Stop: 07/09/19 16:22 Metronidazole 500 mg/ Premix 100 mls @ 100 mls/hr IV ONETIME ONE Stop: 07/09/19 16:23 Last Admin: 07/09/19 15:29 Dose: 100 mls/hr Sodium Chloride (Normal Saline) 1,000 mls @ 150 mls/hr IV .BOLUS ONE Stop: 07/09/19 22:03 Last Admin: 07/09/19 15:29 Dose: 150 mls/hr Ciprofloxacin/Dextrose 400 mg/ (Premix) 200 mls @ 200 mls/hr IV Q8HR JONAS Lactated Ringer's (Ringers, Lactated) 1,000 mls @ 125 mls/hr IV ASDIRECTED JONAS Metronidazole 500 mg/ Premix 100 mls @ 100 mls/hr IV Q8H JONAS Oxycodone HCl (Oxycodone) 5 mg PO Q6H PRN PRN Reason: Pain (moderate 4-6) Sodium Chloride (Saline Flush) 10 ml FLUSH ASDIRECTED PRN PRN Reason: Keep Vein Open Last Admin: 07/09/19 13:12 Dose: 10 ml Assessment/Plan Comment:: #Acute gastroenteritis -Patient presented to the ED for evaluation of abdominal pain -Had 1 episode of diarrhea and ED. She also has nausea -Diffuse abdominal tenderness noted on exam -Leukocytosis -Admitted to medical floor -IV fluids -IV Cipro and Flagyl -Serial abdomen exam -Percocet for pain control #Sepsis -Sepsis protocol -IV fluid -Blood culture, urine culture -Continue antibiotic #My ongoing metabolic acidosis likely due to ongoing infection -IV fluid -Follow up #Polysubstance abuse disorder -U tox positive for amphetamine, methamphetamine and mitral -Patient denies use of any recreational drugs are positive for marijuana -Advised to quit -Nicotine patch provided #Elevated ALT -Monitor
[2019-07-09] MEDS: Ciprofloxacin in D5W 400 MG in Premix Bag 1 BAG IV SCH ×2 (16:40)
[2019-07-09] MEDS: oxyCODONE 5 MG Tab PO PRN (21:08)
[2019-07-09] MEDS: Heparin Sodium 5,000 Units/ML Vial SUBCUT SCH (21:50)
[2019-07-09] MEDS: Pantoprazole 40 MG Vial IVPUSH SCH (21:55)
[2019-07-09] MEDS: metroNIDAZOLE/Normal Saline 500 MG in Premix Bag 100 BAG IV SCH (22:53)
[2019-07-10] MEDS: Lactated Ringers 1,000 ML IV SCH ×3 (00:55→20:02)
[2019-07-10] MEDS: oxyCODONE 5 MG Tab PO PRN ×3 (03:13→17:52)
[2019-07-10] MEDS: metroNIDAZOLE/Normal Saline 500 MG in Premix Bag 100 BAG IV SCH (05:35)
[2019-07-10 07:15] LABS: ANION GAP 12.5 mEq/L (7-13); CHLORIDE,CL 104 mmol/L (98-107); SODIUM,NA 139 mmol/L (136-145)
[2019-07-10] MEDS: Heparin Sodium 5,000 Units/ML Vial SUBCUT SCH ×2 (09:09→22:23)
[2019-07-10] MEDS: Ciprofloxacin in D5W 400 MG in Premix Bag 1 BAG IV SCH ×2 (09:10)
[2019-07-10] MEDS ORDERED: Sodium Chloride 0.9% 1,000 ML IV ONE (10:03)
[2019-07-10] MEDS: HYDROmorphone 0.5 MG/0.5 ML Syringe IVPUSH PRN ×3 (10:07→19:51)
[2019-07-10] MEDS: Piperacillin/Tazobactam 4.5 GM in Sodium Chloride 0.9% 100 ML IV SCH ×3 (10:08→22:21)
--- NOTE | 2019-07-10 11:49 | PCM.PN ---
- General Info Date of Service: 07/10/19 Admission Dx/Problem (Free Text): Admission Diagnosis/Problem Admission Diagnosis/Problem Acute Gastroenteritis Subjective Update: Gaby is 29-year-old female with h/o substance abuse (tobacco and marijuana), s /p cholecystectomy and appendectomy who presented today to ED for evaluation of acute onset of abdominal pain. She was admitted for acute gastroenteritis. CT abdomen and pelvis with contrast was suggestive of gastroenteritis. Had leukocytosis on admit. Today patient was seen and examined. She still c/o severe abdominal pain. Pain is sharp, diffuse but more concentrated to the lower abdomen. She has been on any nausea vomiting this morning. She is tolerating a small amount of diet. Fentanyl improved pain. She denies vagina discharge. No fever or chills. Morning labs showed the bit dizzy trended up to 24 K. Functional Status: Reports: Other (Still c/o abdominal pain ) - Review of Systems General: Reports: Appetite HEENT: Reports: No Symptoms Pulmonary: Reports: No Symptoms Cardiovascular: Reports: No Symptoms Gastrointestinal: Reports: Abdominal Pain, Decreased Appetite Genitourinary: Reports: No Symptoms Musculoskeletal: Reports: No Symptoms Skin: Reports: No Symptoms Neurological: Reports: No Symptoms Psychiatric: Reports: No Symptoms - Patient Data Vitals - Most Recent: Last Vital Signs Temp 98.2 F 07/10/19 08:09 Pulse 84 07/10/19 08:09 Resp 20 07/10/19 08:09 BP 94/55 L 07/10/19 08:09 Pulse Ox 100 07/10/19 08:09 Weight - Most Recent: 128 lb 12.8 oz I&O - Last 24 Hours: Intake & Output 07/09/19 07/10/19 07/10/19 22:59 06:59 14:59 Intake Total 940 2079 253 Output Total 800 1000 Balance 140 1079 253 Lab Results Last 24 Hours: Laboratory Results - last 24 hr 07/09/19 07/09/19 07/09/19 Range/Units 12:31 12:31 12:31 WBC (5.0-10.0) 10^3/uL RBC (4.2-5.4) 10^6/uL Hgb (12.0-16.0) g/dL Hct (37.0-47.0) % MCV (80-100) fL MCH (27.0-34.0) pg MCHC (33.0-35.0) g/dL Plt Count (150-450) 10^3/uL Neut % (Auto) (42.2-75.2) % Lymph % (Auto) (20.5-50.1) % [place] % (Auto) (2-8) % Eos % (Auto) (1.0-3.0) % Baso % (Auto) (0.0-1.0) % Sodium (136-145) mmol/L Potassium (3.5-5.1) mmol/L Chloride (98-107) mmol/L Carbon Dioxide (21-32) mmol/L Anion Gap (7-13) mEq/L BUN (7-18) mg/dL Creatinine (0.55-1.02) mg/dL Est Cr Clr Drug Dosing mL/min Estimated GFR (MDRD) BUN/Creatinine Ratio (No establ ref range) Glucose (74-99) mg/dL Lactic Acid (0.4-2.0) mmol/L Calcium (8.5-10.1) mg/dL Phosphorus (2.6-4.7) mg/dL Magnesium (1.8-2.4) mg/dL Total Bilirubin (0.2-1.0) mg/dL AST (15-37) U/L ALT (14-59) U/L Alkaline Phosphatase (46-116) U/L Total Protein (6.4-8.2) g/dL Albumin (3.4-5.0) g/dL Globulin Albumin/Globulin Ratio Lipase (73-393) U/L Urine Color Yellow (YELLOW) Urine Appearance Slightly cloudy (CLEAR) Urine pH 5.5 (5.0-9.0) Ur Specific [place] 1.025 (1.005-1.030) Urine Protein Negative (NEGATIVE) Urine Glucose (UA) Negative (NEGATIVE) Urine Ketones Negative (NEGATIVE) Urine Occult Blood Small H (NEGATIVE) Urine Nitrite Negative (NEGATIVE) Urine Bilirubin Negative (NEGATIVE) Urine Urobilinogen 1.0 (0.2-1.0) mg/dL Ur Leukocyte Esterase Small H (NEGATIVE) Urine RBC 0-5 /HPF Urine WBC 20-30 H (0-5/HPF) /HPF Ur Epithelial Cells Moderate H (NOT SEEN) /HPF Urine Bacteria Few (0-FEW/HPF) /HPF Urine Mucus Rare (NOT SEEN) /LPF Urine HCG, Qual Negative Urine Opiates Screen Negative (NEGATIVE) Ur Oxycodone Screen Negative (NEGATIVE) Urine Methadone Screen Negative (NEGATIVE) Ur Barbiturates Screen Negative (NEGATIVE) U Tricyclic Antidepress Negative (NEGATIVE) Ur Phencyclidine Scrn Negative (NEGATIVE) Ur Amphetamine Screen Positive H (NEGATIVE) U Methamphetamines Scrn Positive H (NEGATIVE) Urine MDMA Screen Negative (NEGATIVE) U Benzodiazepines Scrn Negative (NEGATIVE) Urine Cocaine Screen Negative (NEGATIVE) U Marijuana (THC) Screen Positive H (NEGATIVE) 07/09/19 07/09/19 07/09/19 Range/Units 13:04 13:04 13:04 WBC 22.4 H (5.0-10.0) 10^3/uL RBC 4.41 (4.2-5.4) 10^6/uL Hgb 14.0 D (12.0-16.0) g/dL Hct 40.7 (37.0-47.0) % MCV 92.3 D (80-100) fL MCH 31.7 (27.0-34.0) pg MCHC 34.4 (33.0-35.0) g/dL Plt Count 261 D (150-450) 10^3/uL Neut % (Auto) 94.1 H (42.2-75.2) % Lymph % (Auto) 3.4 L (20.5-50.1) % [place] % (Auto) 2.5 (2-8) % Eos % (Auto) 0.0 L (1.0-3.0) % Baso % (Auto) 0.0 (0.0-1.0) % Sodium 134 L (136-145) mmol/L Potassium 3.7 (3.5-5.1) mmol/L Chloride 98 (98-107) mmol/L Carbon Dioxide 25 (21-32) mmol/L Anion Gap 14.7 H (7-13) mEq/L BUN 11 (7-18) mg/dL Creatinine 0.83 (0.55-1.02) mg/dL Est Cr Clr Drug Dosing 86.36 mL/min Estimated GFR (MDRD) > 60 BUN/Creatinine Ratio 13.3 (No establ ref range) Glucose 99 (74-99) mg/dL Lactic Acid 1.7 (0.4-2.0) mmol/L Calcium 7.9 L (8.5-10.1) mg/dL Phosphorus (2.6-4.7) mg/dL Magnesium (1.8-2.4) mg/dL Total Bilirubin 0.8 (0.2-1.0) mg/dL AST 30 (15-37) U/L ALT 60 H (14-59) U/L Alkaline Phosphatase 80 (46-116) U/L Total Protein 7.2 (6.4-8.2) g/dL Albumin 3.8 (3.4-5.0) g/dL Globulin 3.4 Albumin/Globulin Ratio 1.1 Lipase (73-393) U/L Urine Color (YELLOW) Urine Appearance (CLEAR) Urine pH (5.0-9.0) Ur Specific [place] (1.005-1.030) Urine Protein (NEGATIVE) Urine Glucose (UA) (NEGATIVE) Urine Ketones (NEGATIVE) Urine Occult Blood (NEGATIVE) Urine Nitrite (NEGATIVE) Urine Bilirubin (NEGATIVE) Urine Urobilinogen (0.2-1.0) mg/dL Ur Leukocyte Esterase (NEGATIVE) Urine RBC /HPF Urine WBC (0-5/HPF) /HPF Ur Epithelial Cells (NOT SEEN) /HPF Urine Bacteria (0-FEW/HPF) /HPF Urine Mucus (NOT SEEN) /LPF Urine HCG, Qual Urine Opiates Screen (NEGATIVE) Ur Oxycodone Screen (NEGATIVE) Urine Methadone Screen (NEGATIVE) Ur Barbiturates Screen (NEGATIVE) U Tricyclic Antidepress (NEGATIVE) Ur Phencyclidine Scrn (NEGATIVE) Ur Amphetamine Screen (NEGATIVE) U Methamphetamines Scrn (NEGATIVE) Urine MDMA Screen (NEGATIVE) U Benzodiazepines Scrn (NEGATIVE) Urine Cocaine Screen (NEGATIVE) U Marijuana (THC) Screen (NEGATIVE) 07/09/19 07/09/19 07/10/19 Range/Units 13:35 13:35 06:05 WBC 24.3 H (5.0-10.0) 10^3/uL RBC 3.91 L (4.2-5.4) 10^6/uL Hgb 12.3 D (12.0-16.0) g/dL Hct 35.8 L (37.0-47.0) % MCV 91.6 (80-100) fL MCH 31.5 (27.0-34.0) pg MCHC 34.4 (33.0-35.0) g/dL Plt Count 278 (150-450) 10^3/uL Neut % (Auto) (42.2-75.2) % Lymph % (Auto) (20.5-50.1) % [place] % (Auto) (2-8) % Eos % (Auto) (1.0-3.0) % Baso % (Auto) (0.0-1.0) % Sodium (136-145) mmol/L Potassium (3.5-5.1) mmol/L Chloride (98-107) mmol/L Carbon Dioxide (21-32) mmol/L Anion Gap (7-13) mEq/L BUN (7-18) mg/dL Creatinine (0.55-1.02) mg/dL Est Cr Clr Drug Dosing mL/min Estimated GFR (MDRD) BUN/Creatinine Ratio (No establ ref range) Glucose (74-99) mg/dL Lactic Acid (0.4-2.0) mmol/L Calcium (8.5-10.1) mg/dL Phosphorus 1.9 L (2.6-4.7) mg/dL Magnesium 1.6 L (1.8-2.4) mg/dL Total Bilirubin (0.2-1.0) mg/dL AST (15-37) U/L ALT (14-59) U/L Alkaline Phosphatase (46-116) U/L Total Protein (6.4-8.2) g/dL Albumin (3.4-5.0) g/dL Globulin Albumin/Globulin Ratio Lipase 60 L (73-393) U/L Urine Color (YELLOW) Urine Appearance (CLEAR) Urine pH (5.0-9.0) Ur Specific [place] (1.005-1.030) Urine Protein (NEGATIVE) Urine Glucose (UA) (NEGATIVE) Urine Ketones (NEGATIVE) Urine Occult Blood (NEGATIVE) Urine Nitrite (NEGATIVE) Urine Bilirubin (NEGATIVE) Urine Urobilinogen (0.2-1.0) mg/dL Ur Leukocyte Esterase (NEGATIVE) Urine RBC /HPF Urine WBC (0-5/HPF) /HPF Ur Epithelial Cells (NOT SEEN) /HPF Urine Bacteria (0-FEW/HPF) /HPF Urine Mucus (NOT SEEN) /LPF Urine HCG, Qual Urine Opiates Screen (NEGATIVE) Ur Oxycodone Screen (NEGATIVE) Urine Methadone Screen (NEGATIVE) Ur Barbiturates Screen (NEGATIVE) U Tricyclic Antidepress (NEGATIVE) Ur Phencyclidine Scrn (NEGATIVE) Ur Amphetamine Screen (NEGATIVE) U Methamphetamines Scrn (NEGATIVE) Urine MDMA Screen (NEGATIVE) U Benzodiazepines Scrn (NEGATIVE) Urine Cocaine Screen (NEGATIVE) U Marijuana (THC) Screen (NEGATIVE) 07/10/19 Range/Units 06:05 WBC (5.0-10.0) 10^3/uL RBC (4.2-5.4) 10^6/uL Hgb (12.0-16.0) g/dL Hct (37.0-47.0) % MCV (80-100) fL MCH (27.0-34.0) pg MCHC (33.0-35.0) g/dL Plt Count (150-450) 10^3/uL Neut % (Auto) (42.2-75.2) % Lymph % (Auto) (20.5-50.1) % [place] % (Auto) (2-8) % Eos % (Auto) (1.0-3.0) % Baso % (Auto) (0.0-1.0) % Sodium 139 (136-145) mmol/L Potassium 3.5 (3.5-5.1) mmol/L Chloride 104 (98-107) mmol/L Carbon Dioxide 26 (21-32) mmol/L Anion Gap 12.5 (7-13) mEq/L BUN 8 (7-18) mg/dL Creatinine 0.70 (0.55-1.02) mg/dL Est Cr Clr Drug Dosing 98.09 mL/min Estimated GFR (MDRD) > 60 BUN/Creatinine Ratio 11.4 (No establ ref range) Glucose 97 (74-99) mg/dL Lactic Acid (0.4-2.0) mmol/L Calcium 7.7 L (8.5-10.1) mg/dL Phosphorus (2.6-4.7) mg/dL Magnesium (1.8-2.4) mg/dL Total Bilirubin 0.6 (0.2-1.0) mg/dL AST 19 (15-37) U/L ALT 44 (14-59) U/L Alkaline Phosphatase 70 (46-116) U/L Total Protein 5.7 L (6.4-8.2) g/dL Albumin 2.9 L (3.4-5.0) g/dL Globulin 2.8 Albumin/Globulin Ratio 1.04 Lipase (73-393) U/L Urine Color (YELLOW) Urine Appearance (CLEAR) Urine pH (5.0-9.0) Ur Specific [place] (1.005-1.030) Urine Protein (NEGATIVE) Urine Glucose (UA) (NEGATIVE) Urine Ketones (NEGATIVE) Urine Occult Blood (NEGATIVE) Urine Nitrite (NEGATIVE) Urine Bilirubin (NEGATIVE) Urine Urobilinogen (0.2-1.0) mg/dL Ur Leukocyte Esterase (NEGATIVE) Urine RBC /HPF Urine WBC (0-5/HPF) /HPF Ur Epithelial Cells (NOT SEEN) /HPF Urine Bacteria (0-FEW/HPF) /HPF Urine Mucus (NOT SEEN) /LPF Urine HCG, Qual Urine Opiates Screen (NEGATIVE) Ur Oxycodone Screen (NEGATIVE) Urine Methadone Screen (NEGATIVE) Ur Barbiturates Screen (NEGATIVE) U Tricyclic Antidepress (NEGATIVE) Ur Phencyclidine Scrn (NEGATIVE) Ur Amphetamine Screen (NEGATIVE) U Methamphetamines Scrn (NEGATIVE) Urine MDMA Screen (NEGATIVE) U Benzodiazepines Scrn (NEGATIVE) Urine Cocaine Screen (NEGATIVE) U Marijuana (THC) Screen (NEGATIVE) Anant Results Last 24 Hours: Microbiology 07/09/19 12:31 Urine Culture - Preliminary Urine, Voided NO GROWTH AFTER 1 DAY 07/09/19 13:30 Anaerobic Blood Culture - Final Blood - Venous 07/09/19 13:35 Anaerobic Blood Culture - Final Blood - Venous - Lab Draw Med Orders - Current: Current Medications Acetaminophen (Tylenol) 650 mg PO Q4H PRN PRN Reason: Pain (Mild 1-3)/fever Heparin Sodium (Porcine) (Heparin Sodium) 5,000 units SUBCUT Q12HR JONAS Last Admin: 07/10/19 09:09 Dose: 5,000 units Hydromorphone HCl (Dilaudid) 0.5 mg IVPUSH Q4H PRN PRN Reason: Pain (severe 7-10) Last Admin: 07/10/19 10:07 Dose: 0.5 mg Lactated Ringer's (Ringers, Lactated) 1,000 mls @ 125 mls/hr IV ASDIRECTED JONAS Last Infusion: 07/10/19 10:06 Dose: Infused Piperacillin Sod/Tazobactam (Sod 4.5 gm/ Sodium Chloride) 100 mls @ 200 mls/hr IV Q6H [facility] Last Admin: 07/10/19 10:08 Dose: 200 mls/hr Influenza Virus Vaccine (Pharmacy To Dose - Influenza Vaccine) 1 each IM ONETIME ONE Stop: 07/09/19 16:42 Oxycodone HCl (Oxycodone) 5 mg PO Q6H PRN PRN Reason: Pain (moderate 4-6) Last Admin: 07/10/19 09:09 Dose: 5 mg Pantoprazole Sodium (Protonix Iv) 40 mg IVPUSH BEDTIME [facility] Last Admin: 07/09/19 21:55 Dose: 40 mg Sodium Chloride (Saline Flush) 10 ml FLUSH ASDIRECTED PRN PRN Reason: Keep Vein Open Last Admin: 07/09/19 13:12 Dose: 10 ml Discontinued Medications Fentanyl (Sublimaze) 50 mcg IVPUSH ONETIME ONE Stop: 07/09/19 13:00 Last Admin: 07/09/19 13:12 Dose: 50 mcg Sodium Chloride (Normal Saline) 1,000 mls @ 999 mls/hr IV .BOLUS ONE Stop: 07/09/19 13:46 Last Admin: 07/09/19 13:12 Dose: 999 mls/hr Ciprofloxacin/Dextrose 400 mg/ (Premix) 200 mls @ 200 mls/hr IV ONETIME ONE Stop: 07/09/19 16:22 Last Admin: 07/09/19 16:34 Dose: Not Given Metronidazole 500 mg/ Premix 100 mls @ 100 mls/hr IV ONETIME ONE Stop: 07/09/19 16:23 Last Infusion: 07/09/19 17:30 Dose: Infused Sodium Chloride (Normal Saline) 1,000 mls @ 150 mls/hr IV .BOLUS ONE Stop: 07/09/19 22:03 Last Infusion: 07/10/19 00:51 Dose: Infused Ciprofloxacin/Dextrose 400 mg/ (Premix) 200 mls @ 200 mls/hr IV Q12HR [facility] Last Admin: 07/10/19 09:10 Dose: 200 mls/hr Metronidazole 500 mg/ Premix 100 mls @ 100 mls/hr IV Q8HR [facility] Last Infusion: 07/10/19 06:37 Dose: Infused Sodium Chloride (Normal Saline) 1,000 mls @ 999 mls/hr IV .BOLUS ONE Stop: 07/10/19 11:03 Last Admin: 07/10/19 10:11 Dose: 999 mls/hr Iopamidol (Isovue-300 (61%)) 100 ml IVPUSH ONETIME ONE Stop: 07/09/19 14:34 Last Admin: 07/09/19 14:35 Dose: 75 ml - Exam General: Alert, Oriented HEENT: Pupils Equal, Pupils Reactive, EOMI, Mucous Membr. Moist/[place] Neck: Supple Lungs: Clear to Auscultation, Normal Respiratory Effort Cardiovascular: Regular Rate, Regular Rhythm GI/Abdominal Exam: Soft, No Organomegaly, No Distention, No Abnormal Bruit, No Mass, Pelvis Stable, Tender, Other (Diffuse tenderness. More to the suprapubic area. + CVA tenderness) (Female) Exam: Normal External Exam, Normal Speculum Exam, Normal Bimanual Exam Back Exam: Normal Inspection, Full Range of Motion Extremities: Normal Inspection, Normal Range of Motion, Non-Tender, No Pedal Edema, Normal Capillary Refill Skin: Warm, Dry, Intact Wound/Incisions: Healing Well Neurological: No New Focal Deficit Psy/Mental Status: Alert, Normal Affect, Normal Mood Sepsis Event Note - Evaluation Sepsis Screening Result: No Definite Risk - Focused Exam Vital Signs: Vital Signs Temp Pulse Resp BP Pulse Ox 07/10/19 08:09 98.2 F 84 20 94/55 L 100 07/10/19 03:29 99.6 F 90 20 91/53 L 98 07/10/19 01:00 99.7 F 97 20 99/50 L 97 Date Exam was Performed: 07/10/19 Time Exam was Performed: 12:05 - Problem List Review Problem List Initiated/Reviewed/Updated: Yes - My Orders Last 24 Hours: My Active Orders 07/09/19 16:15 Ambulate [RC] ASDIRECTED Height and Weight [RC] 0600 Intake and Output [RC] QSHIFT Oxygen Therapy [RC] PRN VTE/DVT Education [RC] PER UNIT ROUTINE Vital Signs [RC] Q4H Acetaminophen [Tylenol] 650 mg PO Q4H PRN Lactated Ringers [Ringers, Lactated] 1,000 ml IV ASDIRECTED oxyCODONE 5 mg PO Q6H PRN Resuscitation Status Routine 07/09/19 16:16 Notify Provider Vital Signs [RC] ASDIRECTED 07/09/19 16:41 Influenza Vaccine Charge [RC] .DISCHARGE Pharmacy to Dose - InFluenza V [Pharmacy to Dose - InFluenza Vaccine] 1 each IM ONETIME ONE 07/09/19 21:00 Heparin Sodium 5,000 units SUBCUT Q12HR Pantoprazole [ProTONIX IV] 40 mg IVPUSH BEDTIME 07/09/19 Dinner Regular Diet [DIET] 07/10/19 09:57 HYDROmorphone [Dilaudid] 0.5 mg IVPUSH Q4H PRN 07/10/19 10:00 Piperacillin/Tazobactam [Zosyn] 4.5 gm Sodium Chloride 0.9% [Normal Saline] 100 ml IV Q6H 07/10/19 11:04 Pelvis Non OB Comp [US] Urgent 07/11/19 07:00 CBC W/O DIFF,HEMOGRAM [HEME] DAILY COMPREHENSIVE METABOLIC PN,CMP [CHEM] DAILY - Plan Plan:: #Acute abdomen likely due to gastroenteritis vs pyelonephritis -wbc trended up -Switch IV flagyl and cipro to IV Zosyn -IV fluids -Serial abdomen exam -Percocet and Dilaudid for pain control #Sepsis due to above -Continue IV fluid -Blood culture, urine culture in process -Continue IV Zosyn as above #Hypophosphatemia/Hypomagnesemia -Replace per protocol #Anion gap metabolic acidosis likely due to ongoing infection -Resolved #Polysubstance abuse disorder -U tox positive for amphetamine, methamphetamine and mitral -Patient denies use of any recreational drugs are positive for marijuana -Advised to quit -Nicotine patch provided #Elevated ALT -Monitor #Regular diet #Full code
[2019-07-10] MEDS ORDERED: Magnesium Sulfate/D5W 2 GM in Premix Bag 1 BAG IV ONE (12:06)
[2019-07-10] MEDS: Phosphorus #1 250 MG Tab PO SCH ×3 (13:06→22:23)
[2019-07-10] MEDS: Sodium Chloride 0.9% 10 ML Syringe FLUSH PRN ×4 (19:51→22:20)
[2019-07-10] MEDS: Pantoprazole 40 MG Vial IVPUSH SCH (22:16)
[2019-07-11] MEDS: HYDROmorphone 0.5 MG/0.5 ML Syringe IVPUSH PRN ×2 (00:17→04:01)
[2019-07-11] MEDS: Sodium Chloride 0.9% 10 ML Syringe FLUSH PRN ×5 (00:17→04:53)
[2019-07-11] MEDS: oxyCODONE 5 MG Tab PO PRN ×2 (02:10→09:18)
[2019-07-11] MEDS: Piperacillin/Tazobactam 4.5 GM in Sodium Chloride 0.9% 100 ML IV SCH ×2 (04:11→09:19)
[2019-07-11] MEDS: Lactated Ringers 1,000 ML IV SCH (04:58)
[2019-07-11 07:12] LABS: ANION GAP 10.3 mEq/L (7-13); CHLORIDE,CL 104 mmol/L (98-107); SODIUM,NA 138 mmol/L (136-145)
[2019-07-11 07:59] VITALS: BP 96/51; PULSE 103
[2019-07-11] MEDS: Heparin Sodium 5,000 Units/ML Vial SUBCUT SCH (09:18)
[2019-07-11] MEDS: Phosphorus #1 250 MG Tab PO SCH (09:18)
--- NOTE | 2019-07-11 10:48 | PCM.DCSUM1 ---
Discharge Summary - Hospital Course Free Text/Narrative:: Gaby is 29-year-old female with h/o substance abuse (tobacco and marijuana), s /p cholecystectomy and appendectomy who presented today to ED for evaluation of acute onset of abdominal pain. She was admitted for acute gastroenteritis. CT abdomen and pelvis with contrast was suggestive of gastroenteritis. No adnexal lesion or fluid in cul-de-sac. Had leukocytosis on admit. She received IV Zosyn. She responded significantly to treatment. Leukocytosis resolved. She was discharge in stable condition with plan to follow up with PCP. She was advised the dangers of continue substance abuse and she verbalized understanding. Diagnosis: Stroke: No - Discharge Data Discharge Date: 07/11/19 Discharge Disposition: Home, Self-Care 01 Condition: Good - Referral to Home Health Primary Care Physician: PCP Unobtainable - Patient Instructions Diet: Usual Diet as Tolerated Activity: As Tolerated Driving: May Drive Today Showering/Bathing: May Shower Notify Provider of: Fever, Increased Pain, Nausea and/or Vomiting - Discharge Plan *PRESCRIPTION DRUG MONITORING PROGRAM REVIEWED*: Yes *COPY OF PRESCRIPTION DRUG MONITORING REPORT IN PATIENT MIAN: Yes Prescriptions/Med Rec: Ciprofloxacin HCl [Cipro] 500 mg PO BID #10 tablet metroNIDAZOLE [Flagyl] 500 mg PO Q8H #15 tab oxyCODONE 10 mg PO Q6H PRN 3 Days #10 tablet PRN Reason: Pain (Moderate 4-6) Phosphorus #1 [Neutra-Phos] 250 mg PO QID #15 tablet Potassium Chloride [Klor-Con 10] 40 meq PO BID 3 Days #24 tab.er Home Medications: Home Meds Ciprofloxacin HCl [Cipro] 500 mg PO BID #10 tablet 07/11/19 [Rx] Phosphorus #1 [Neutra-Phos] 250 mg PO QID #15 tablet 07/11/19 [Rx] Potassium Chloride [Klor-Con 10] 40 meq PO BID 3 Days #24 tab.er 07/11/19 [Rx] metroNIDAZOLE [Flagyl] 500 mg PO Q8H #15 tab 07/11/19 [Rx] oxyCODONE 10 mg PO Q6H PRN 3 Days #10 tablet 07/11/19 [Rx] Forms: ED Department Discharge Referrals: PCP,Unobtain [Primary Care Provider] - - Discharge Summary/Plan Comment DC Time >30 min.: Yes - General Info Date of Service: 07/11/19 Admission Dx/Problem (Free Text: Admission Diagnosis/Problem Admission Diagnosis/Problem Acute Gastroenteritis Functional Status: Reports: Pain Controlled - Review of Systems General: Reports: No Symptoms HEENT: Reports: No Symptoms Pulmonary: Reports: No Symptoms Cardiovascular: Reports: No Symptoms Gastrointestinal: Reports: No Symptoms Genitourinary: Reports: No Symptoms Musculoskeletal: Reports: No Symptoms Skin: Reports: No Symptoms Neurological: Reports: No Symptoms Psychiatric: Reports: No Symptoms - Patient Data Vitals - Most Recent: Last Vital Signs Temp 99.3 F 07/11/19 07:58 Pulse 103 H 07/11/19 07:58 Resp 16 07/11/19 07:58 BP 96/51 L 07/11/19 07:58 Pulse Ox 97 07/11/19 07:58 Weight - Most Recent: 134 lb 12.8 oz I&O - Last 24 hours: Intake & Output 07/10/19 07/11/19 07/11/19 22:59 06:59 14:59 Intake Total 1649 1540 120 Output Total 1600 600 Balance 49 940 120 Lab Results - Last 24 hrs: Laboratory Results - last 24 hr 07/10/19 07/11/19 07/11/19 Range/Units 18:27 06:10 06:10 WBC 12.2 H (5.0-10.0) 10^3/uL RBC 3.45 L (4.2-5.4) 10^6/uL Hgb 10.8 L D (12.0-16.0) g/dL Hct 32.3 L (37.0-47.0) % MCV 93.6 (80-100) fL MCH 31.3 (27.0-34.0) pg MCHC 33.4 (33.0-35.0) g/dL Plt Count 235 (150-450) 10^3/uL Sodium 138 (136-145) mmol/L Potassium 3.3 L (3.5-5.1) mmol/L Chloride 104 (98-107) mmol/L Carbon Dioxide 27 (21-32) mmol/L Anion Gap 10.3 (7-13) mEq/L BUN 4 L (7-18) mg/dL Creatinine 0.70 (0.55-1.02) mg/dL Est Cr Clr Drug Dosing 98.09 mL/min Estimated GFR (MDRD) > 60 BUN/Creatinine Ratio 5.7 (No establ ref range) Glucose 109 H (74-99) mg/dL Calcium 7.4 L (8.5-10.1) mg/dL Phosphorus 1.9 L (2.6-4.7) mg/dL Magnesium 2.2 (1.8-2.4) mg/dL Total Bilirubin 0.5 (0.2-1.0) mg/dL AST 34 (15-37) U/L ALT 66 H (14-59) U/L Alkaline Phosphatase 104 (46-116) U/L Total Protein 5.7 L (6.4-8.2) g/dL Albumin 2.5 L (3.4-5.0) g/dL Globulin 3.2 Albumin/Globulin Ratio 0.78 CASSIE Results - Last 24 hrs: Microbiology 07/09/19 12:31 Urine Culture - Final Urine, Voided 07/09/19 13:35 Aerobic Blood Culture - Preliminary Blood - Venous - Lab Draw NO GROWTH AFTER 1 DAY Anaerobic Blood Culture - Final 07/09/19 13:30 Aerobic Blood Culture - Preliminary Blood - Venous NO GROWTH AFTER 1 DAY Anaerobic Blood Culture - Final Med Orders - Current: Current Medications Acetaminophen (Tylenol) 650 mg PO Q4H PRN PRN Reason: Pain (Mild 1-3)/fever Last Admin: 07/10/19 17:52 Dose: 650 mg Heparin Sodium (Porcine) (Heparin Sodium) 5,000 units SUBCUT Q12HR [facility] Last Admin: 07/11/19 09:18 Dose: 5,000 units Lactated Ringer's (Ringers, Lactated) 1,000 mls @ 125 mls/hr IV ASDIRECTED [facility] Last Admin: 07/11/19 04:58 Dose: 125 mls/hr Piperacillin Sod/Tazobactam (Sod 4.5 gm/ Sodium Chloride) 100 mls @ 200 mls/hr IV Q6H [facility] Last Admin: 07/11/19 09:19 Dose: 200 mls/hr Influenza Virus Vaccine (Pharmacy To Dose - Influenza Vaccine) 1 each IM ONETIME ONE Stop: 07/09/19 16:42 Oxycodone HCl (Oxycodone) 5 mg PO Q6H PRN PRN Reason: Pain (moderate 4-6) Last Admin: 07/11/19 09:18 Dose: 5 mg Pantoprazole Sodium (Protonix Iv) 40 mg IVPUSH BEDTIME [facility] Last Admin: 07/10/19 22:16 Dose: 40 mg Potassium Chloride (Klor-Con 10) 40 meq PO BID [facility] Sodium Chloride (Saline Flush) 10 ml FLUSH ASDIRECTED PRN PRN Reason: Keep Vein Open Last Admin: 07/11/19 04:53 Dose: 10 ml Sodium Phosphate (Neutra-Phos) 250 mg PO QID [facility] Last Admin: 07/11/19 09:18 Dose: 250 mg Discontinued Medications Fentanyl (Sublimaze) 50 mcg IVPUSH ONETIME ONE Stop: 07/09/19 13:00 Last Admin: 07/09/19 13:12 Dose: 50 mcg Hydromorphone HCl (Dilaudid) 0.5 mg IVPUSH Q4H PRN PRN Reason: Pain (severe 7-10) Last Admin: 07/11/19 04:01 Dose: 0.5 mg Sodium Chloride (Normal Saline) 1,000 mls @ 999 mls/hr IV .BOLUS ONE Stop: 07/09/19 13:46 Last Admin: 07/09/19 13:12 Dose: 999 mls/hr Ciprofloxacin/Dextrose 400 mg/ (Premix) 200 mls @ 200 mls/hr IV ONETIME ONE Stop: 07/09/19 16:22 Last Admin: 07/09/19 16:34 Dose: Not Given Metronidazole 500 mg/ Premix 100 mls @ 100 mls/hr IV ONETIME ONE Stop: 07/09/19 16:23 Last Infusion: 07/09/19 17:30 Dose: Infused Sodium Chloride (Normal Saline) 1,000 mls @ 150 mls/hr IV .BOLUS ONE Stop: 07/09/19 22:03 Last Infusion: 07/10/19 00:51 Dose: Infused Ciprofloxacin/Dextrose 400 mg/ (Premix) 200 mls @ 200 mls/hr IV Q12HR [facility] Last Admin: 07/10/19 09:10 Dose: 200 mls/hr Metronidazole 500 mg/ Premix 100 mls @ 100 mls/hr IV Q8HR [facility] Last Infusion: 07/10/19 06:37 Dose: Infused Sodium Chloride (Normal Saline) 1,000 mls @ 999 mls/hr IV .BOLUS ONE Stop: 07/10/19 11:03 Last Infusion: 07/10/19 11:43 Dose: Infused Magnesium Sulfate/Dextrose 2 (gm/ Premix) 200 mls @ 100 mls/hr IV ONETIME ONE Stop: 07/10/19 14:05 Last Infusion: 07/10/19 15:23 Dose: Infused Iopamidol (Isovue-300 (61%)) 100 ml IVPUSH ONETIME ONE Stop: 07/09/19 14:34 Last Admin: 07/09/19 14:35 Dose: 75 ml - Exam General: Reports: Alert, Oriented HEENT: Reports: Pupils Equal, Pupils Reactive, EOMI, Mucous Membr. Moist/Coldstream Neck: Reports: Supple Lungs: Reports: Clear to Auscultation, Normal Respiratory Effort Cardiovascular: Reports: Regular Rate, Regular Rhythm GI/Abdominal Exam: Normal Bowel Sounds, Soft, Non-Tender, No Organomegaly, No Distention, No Abnormal Bruit, No Mass, Pelvis Stable (Female) Exam: Normal External Exam, Normal Speculum Exam, Normal Bimanual Exam Rectal (Female) Exam: Normal Exam, Normal Rectal Tone Back Exam: Reports: Normal Inspection, Full Range of Motion Extremities: Normal Inspection, Normal Range of Motion, Non-Tender, No Pedal Edema, Normal Capillary Refill Skin: Reports: Warm, Dry, Intact Wound/Incisions: Reports: Healing Well Neurological: Reports: No New Focal Deficit Psy/Mental Status: Reports: Alert, Normal Affect, Normal Mood
[2019-07-11] MEDS ORDERED: Potassium Chloride 10 MEQ Tab.ER PO SCH (21:00)
== END 2019-07-11 12:48 | disposition home or self-care (01) | DRG 872 ==
LOC: DL.ED 12:23 → DL.MS 15:25 → DL.ED 15:38
PROVIDERS: ADMIT Student in an Organized Health Care Education/Training Program; ATTEND Student in an Organized Health Care Education/Training Program
DX: A41.9 Sepsis, unspecified organism (principal); E87.2 Acidosis; N12 Tubulo-interstitial nephritis, not specified as acute or chronic; K52.9 Noninfective gastroenteritis and colitis, unspecified; F15.10 Other stimulant abuse, uncomplicated; K21.9 Gastro-esophageal reflux disease without esophagitis; F41.8 Other specified anxiety disorders; I10 Essential (primary) hypertension; G43.909 Migraine, unspecified, not intractable, without status migrainosus; E11.9 Type 2 diabetes mellitus without complications; F17.210 Nicotine dependence, cigarettes, uncomplicated; E83.39 Other disorders of phosphorus metabolism; Z90.49 Acquired absence of other specified parts of digestive tract
CPT/HCPCS: 36415; 74177; 76830; 76856; 80053; 80305-QW; 81001; 81025; 83605; 83690; 83735; 84100; 85025; 85027; 87040; 87086; 96361; 96374; 99285-25; A9270-GY; C9113; J0744; J1170; J1644; J2543; J3010; J3475; J3490; J7030; J7050; J7120; Q9967

== ENCOUNTER 2020-09-24 19:04 | Emergency (ER) | payer MEDICAID ==
[2020-09-24 20:16] LABS: CORONAVIRUS COVID-19 NAA NEGATIVE (NEGATIVE)
--- NOTE | 2020-09-24 20:38 | EDM.PDOC ---
"ED HPI GENERAL MEDICAL PROBLEM - General Chief Complaint: Respiratory Problem Stated Complaint: BREATH PROBLEMS / IN COVID WAITING ROOM Time Seen by Provider: 09/24/20 20:25 Source of Information: Reports: Patient History Limitations: Reports: No Limitations - History of Present Illness INITIAL COMMENTS - FREE TEXT/NARRATIVE: This 30 yo female patient reports to the ED with diffuse chest pain, shortness of breath and a cough. The patient reports her cough started about 1 week ago, but has been getting worse. The patient reports she has been coughing up colored phlegm. The patient reports she has not been able to eat due to the cough and shortness of breath. The patient reports her symptoms have spread to her upper abdomen. The patient reports she has been taking cough medication with little to no symptom relief. Onset: Unknown/Unsure Duration: Week(s):, Getting Worse Location: Reports: Chest, Abdomen Quality: Reports: Ache Severity: Moderate Improves with: Reports: None Worsens with: Reports: None Context: Reports: Other Associated Symptoms: Reports: cough w sputum, Shortness of Breath Chest Pain Score (Numeric/FACES): 8 - Related Data Allergies Allergy/AdvReac Type Severity Reaction Status Date / Time cephalexin [Cephalexin] Allergy Hives Verified 09/24/20 20:29 Home Meds: Home Meds Ciprofloxacin HCl [Cipro] 500 mg PO BID #10 tablet 07/11/19 [Rx] Phosphorus #1 [Neutra-Phos] 250 mg PO QID #15 tablet 07/11/19 [Rx] Potassium Chloride [Klor-Con 10] 40 meq PO BID 3 Days #24 tab.er 07/11/19 [Rx] metroNIDAZOLE [Flagyl] 500 mg PO Q8H #15 tab 07/11/19 [Rx] oxyCODONE 10 mg PO Q6H PRN 3 Days #10 tablet 07/11/19 [Rx] Past Medical History - Past Health History Medical/Surgical History: Denies Medical/Surgical History HEENT History: Reports: None Cardiovascular History: Reports: None Respiratory History: Reports: None Gastrointestinal History: Reports: GERD Genitourinary History: Reports: None [employer]ING [employer] History: Reports: PID, , Spontaneous Musculoskeletal History: Reports: None Neurological History: Reports: None Psychiatric History: Reports: Anxiety, Depression Endocrine/Metabolic History: Reports: None Hematologic History: Reports: None Immunologic History: Reports: None Oncologic (Cancer) History: Reports: None Dermatologic History: Reports: Other (See Below) Other Dermatologic History: boils - Infectious Disease History Infectious Disease History: Reports: MRSA - Past Surgical History Head Surgeries/Procedures: Reports: None GI Surgical History: Reports: Cholecystectomy Female Surgical History: Reports: Section Social & Family History - Family History Family Medical History: No Pertinent Family History Cardiac: Reports: Hypertension OBGYN: Reports: Other (See Below) Neurological: Reports: Migraines Endocrine/Metabolic: Reports: Diabetes, type II - Caffeine Use Caffeine Use: Reports: Coffee, Soda ED ROS GENERAL - Review of Systems Review Of Systems: Comprehensive ROS is negative, except as noted in HPI. ED EXAM, GENERAL - Physical Exam Exam: See Below Exam Limited By: No Limitations General Appearance: Alert, WD/WN, Moderate Distress, Thin Eye Exam: Bilateral Eye: EOMI, Normal Inspection, PERRL Ears: Normal External Exam, Normal Canal, Hearing Grossly Normal, Normal TMs Nose: Normal Inspection, Normal Mucosa, No Blood Throat/Mouth: Normal Inspection, Normal Lips, Normal Teeth, Normal Gums, Normal Oropharynx, Normal Voice, No Airway Compromise Head: Atraumatic, Normocephalic Neck: Normal Inspection, Supple, Non-Tender, Full Range of Motion Respiratory/Chest: No Respiratory Distress, Lungs Clear, Normal Breath Sounds, No Accessory Muscle Use, Other (diffuse chest wall tenderness) Cardiovascular: Normal Peripheral Pulses, Regular Rate, Rhythm, No Edema, No Gallop, No JVD, No Murmur, No Rub GI/Abdominal: Normal Bowel Sounds, Soft, Non-Tender, No Organomegaly, No Distention, No Abnormal Bruit, No Mass (Female) Exam: Deferred Rectal (Female) Exam: Deferred Back Exam: Normal Inspection, Full Range of Motion, NT Extremities: Normal Inspection, Normal Range of Motion, Non-Tender, Normal Capillary Refill, No Pedal Edema Neurological: Alert, Oriented, CN II-XII Intact, Normal Cognition, Normal Gait, Normal Reflexes, No Motor/Sensory Deficits Psychiatric: Normal Affect, Normal Mood Skin Exam: Warm, Dry, Intact, Normal Color, No Rash Lymphatic: No Adenopathy Course - Vital Signs Last Recorded V/S: Last Vital Signs Temp 97.3 F 09/24/20 19:57 Pulse 87 09/24/20 19:57 Resp 24 H 09/24/20 19:57 BP 119/81 09/24/20 19:57 Pulse Ox 100 09/24/20 19:57 - Orders/Labs/Meds Orders: Active Orders 24 hr Category Date Time Status CULTURE BLOOD [BC] Stat Lab 09/24/20 20:27 Ordered Labs: Laboratory Tests 09/24/20 09/24/20 09/24/20 Range/Units 19:33 20:35 20:35 WBC 10.4 H (5.0-10.0) 10^3/uL RBC 4.71 (4.2-5.4) 10^6/uL Hgb 14.6 D (12.0-16.0) g/dL Hct 44.0 (37.0-47.0) % MCV 93.4 (80-100) fL MCH 31.0 (27.0-34.0) pg MCHC 33.2 (33.0-35.0) g/dL Plt Count 480 H D (150-450) 10^3/uL Neut % (Auto) 71.6 (42.2-75.2) % Lymph % (Auto) 21.2 (20.5-50.1) % [place] % (Auto) 6.1 (2-8) % Eos % (Auto) 0.9 L (1.0-3.0) % Baso % (Auto) 0.2 (0.0-1.0) % D-Dimer, Quantitative (0-400) ng/mL Sodium 140 (136-145) mmol/L Potassium 4.2 (3.5-5.1) mmol/L Chloride 102 (98-107) mmol/L Carbon Dioxide 29 (21-32) mmol/L Anion Gap 13.2 H (7-13) mEq/L BUN 13 (7-18) mg/dL Creatinine 0.81 (0.55-1.02) mg/dL Est Cr Clr Drug Dosing TNP Estimated GFR (MDRD) > 60 BUN/Creatinine Ratio 16.0 (No establ ref range) Glucose 80 (70-99) mg/dL Lactic Acid (0.4-2.0) mmol/L Calcium 8.9 D (8.5-10.1) mg/dL Total Bilirubin 0.3 (0.2-1.0) mg/dL AST 68 H (15-37) U/L ALT 144 H (14-59) U/L Alkaline Phosphatase 115 (46-116) U/L Total Protein 7.8 (6.4-8.2) g/dL Albumin 3.8 (3.4-5.0) g/dL Globulin 4.0 Albumin/Globulin Ratio 0.9 Urine Color (YELLOW) Urine Appearance (CLEAR) Urine pH (5.0-9.0) Ur Specific [place] (1.005-1.030) Urine Protein (NEGATIVE) Urine Glucose (UA) (NEGATIVE) Urine Ketones (NEGATIVE) Urine Occult Blood (NEGATIVE) Urine Nitrite (NEGATIVE) Urine Bilirubin (NEGATIVE) Urine Urobilinogen (0.2-1.0) mg/dL Ur Leukocyte Esterase (NEGATIVE) Urine RBC /HPF Urine WBC (0-5/HPF) /HPF Ur Epithelial Cells (NOT SEEN) /HPF Amorphous Sediment (NOT SEEN) /HPF Urine Bacteria (0-FEW/HPF) /HPF Urine HCG, Qual Urine Opiates Screen (NEGATIVE) Ur Oxycodone Screen (NEGATIVE) Urine Methadone Screen (NEGATIVE) Ur Barbiturates Screen (NEGATIVE) U Tricyclic Antidepress (NEGATIVE) Ur Phencyclidine Scrn (NEGATIVE) Ur Amphetamine Screen (NEGATIVE) U Methamphetamines Scrn (NEGATIVE) Urine MDMA Screen (NEGATIVE) U Benzodiazepines Scrn (NEGATIVE) Urine Cocaine Screen (NEGATIVE) U Marijuana (THC) Screen (NEGATIVE) Influenza Type A RNA Negative (NEGATIVE) Influenza Type B RNA Negative (NEGATIVE) SARS-CoV-2 RNA (JESUS) Negative (NEGATIVE) 09/24/20 09/24/20 09/24/20 Range/Units 20:35 20:35 20:55 WBC (5.0-10.0) 10^3/uL RBC (4.2-5.4) 10^6/uL Hgb (12.0-16.0) g/dL Hct (37.0-47.0) % MCV (80-100) fL MCH (27.0-34.0) pg MCHC (33.0-35.0) g/dL Plt Count (150-450) 10^3/uL Neut % (Auto) (42.2-75.2) % Lymph % (Auto) (20.5-50.1) % [place]ergus % (Auto) (2-8) % Eos % (Auto) (1.0-3.0) % Baso % (Auto) (0.0-1.0) % D-Dimer, Quantitative 953 H (0-400) ng/mL Sodium (136-145) mmol/L Potassium (3.5-5.1) mmol/L Chloride (98-107) mmol/L Carbon Dioxide (21-32) mmol/L Anion Gap (7-13) mEq/L BUN (7-18) mg/dL Creatinine (0.55-1.02) mg/dL Est Cr Clr Drug Dosing Estimated GFR (MDRD) BUN/Creatinine Ratio (No establ ref range) Glucose (70-99) mg/dL Lactic Acid 0.9 (0.4-2.0) mmol/L Calcium (8.5-10.1) mg/dL Total Bilirubin (0.2-1.0) mg/dL AST (15-37) U/L ALT (14-59) U/L Alkaline Phosphatase (46-116) U/L Total Protein (6.4-8.2) g/dL Albumin (3.4-5.0) g/dL Globulin Albumin/Globulin Ratio Urine Color Yellow (YELLOW) Urine Appearance Cloudy (CLEAR) Urine pH 7.0 (5.0-9.0) Ur Specific [place] 1.025 (1.005-1.030) Urine Protein Negative (NEGATIVE) Urine Glucose (UA) Negative (NEGATIVE) Urine Ketones Negative (NEGATIVE) Urine Occult Blood Trace-lysed H (NEGATIVE) Urine Nitrite Negative (NEGATIVE) Urine Bilirubin Negative (NEGATIVE) Urine Urobilinogen 0.2 (0.2-1.0) mg/dL Ur Leukocyte Esterase Negative (NEGATIVE) Urine RBC Not seen /HPF Urine WBC 0-5 (0-5/HPF) /HPF Ur Epithelial Cells Occasional (NOT SEEN) /HPF Amorphous Sediment Many H (NOT SEEN) /HPF Urine Bacteria Moderate H (0-FEW/HPF) /HPF Urine HCG, Qual Urine Opiates Screen (NEGATIVE) Ur Oxycodone Screen (NEGATIVE) Urine Methadone Screen (NEGATIVE) Ur Barbiturates Screen (NEGATIVE) U Tricyclic Antidepress (NEGATIVE) Ur Phencyclidine Scrn (NEGATIVE) Ur Amphetamine Screen (NEGATIVE) U Methamphetamines Scrn (NEGATIVE) Urine MDMA Screen (NEGATIVE) U Benzodiazepines Scrn (NEGATIVE) Urine Cocaine Screen (NEGATIVE) U Marijuana (THC) Screen (NEGATIVE) Influenza Type A RNA (NEGATIVE) Influenza Type B RNA (NEGATIVE) SARS-CoV-2 RNA (JESUS) (NEGATIVE) 09/24/20 09/24/20 Range/Units 20:55 20:55 WBC (5.0-10.0) 10^3/uL RBC (4.2-5.4) 10^6/uL Hgb (12.0-16.0) g/dL Hct (37.0-47.0) % MCV (80-100) fL MCH (27.0-34.0) pg MCHC (33.0-35.0) g/dL Plt Count (150-450) 10^3/uL Neut % (Auto) (42.2-75.2) % Lymph % (Auto) (20.5-50.1) % [place]ergus % (Auto) (2-8) % Eos % (Auto) (1.0-3.0) % Baso % (Auto) (0.0-1.0) % D-Dimer, Quantitative (0-400) ng/mL Sodium (136-145) mmol/L Potassium (3.5-5.1) mmol/L Chloride (98-107) mmol/L Carbon Dioxide (21-32) mmol/L Anion Gap (7-13) mEq/L BUN (7-18) mg/dL Creatinine (0.55-1.02) mg/dL Est Cr Clr Drug Dosing Estimated GFR (MDRD) BUN/Creatinine Ratio (No establ ref range) Glucose (70-99) mg/dL Lactic Acid (0.4-2.0) mmol/L Calcium (8.5-10.1) mg/dL Total Bilirubin (0.2-1.0) mg/dL AST (15-37) U/L ALT (14-59) U/L Alkaline Phosphatase (46-116) U/L Total Protein (6.4-8.2) g/dL Albumin (3.4-5.0) g/dL Globulin Albumin/Globulin Ratio Urine Color (YELLOW) Urine Appearance (CLEAR) Urine pH (5.0-9.0) Ur Specific [place] (1.005-1.030) Urine Protein (NEGATIVE) Urine Glucose (UA) (NEGATIVE) Urine Ketones (NEGATIVE) Urine Occult Blood (NEGATIVE) Urine Nitrite (NEGATIVE) Urine Bilirubin (NEGATIVE) Urine Urobilinogen (0.2-1.0) mg/dL Ur Leukocyte Esterase (NEGATIVE) Urine RBC /HPF Urine WBC (0-5/HPF) /HPF Ur Epithelial Cells (NOT SEEN) /HPF Amorphous Sediment (NOT SEEN) /HPF Urine Bacteria (0-FEW/HPF) /HPF Urine HCG, Qual Negative Urine Opiates Screen Negative (NEGATIVE) Ur Oxycodone Screen Negative (NEGATIVE) Urine Methadone Screen Negative (NEGATIVE) Ur Barbiturates Screen Negative (NEGATIVE) U Tricyclic Antidepress Negative (NEGATIVE) Ur Phencyclidine Scrn Negative (NEGATIVE) Ur Amphetamine Screen Positive H (NEGATIVE) U Methamphetamines Scrn Positive H (NEGATIVE) Urine MDMA Screen Negative (NEGATIVE) U Benzodiazepines Scrn Negative (NEGATIVE) Urine Cocaine Screen Negative (NEGATIVE) U Marijuana (THC) Screen Positive H (NEGATIVE) Influenza Type A RNA (NEGATIVE) Influenza Type B RNA (NEGATIVE) SARS-CoV-2 RNA (JESUS) (NEGATIVE) Meds: Medications Discontinued Medications Generic Name Dose Route Start Last Admin Trade Name Mohanq PRN Reason Stop Dose Admin Iopamidol 100 ml 09/24/20 21:42 Iopamidol 612 Mg/Ml 100 Ml Bottle IVPUSH 09/24/20 21:43 ONETIME ONE Iopamidol 100 ml 09/24/20 21:59 09/24/20 22:01 Iopamidol 755 Mg/Ml 100 Ml Bottle IVPUSH 09/24/20 22:00 100 ml ONETIME ONE Administration - Radiology Interpretation Free Text/Narrative:: [facility] Final Radiology Report Call: [phone] assistance Online chat: [email or web address] Name: ANA GALO Age: 30Years F Date: 09/24/2020 SSN: -- : [id number] Study: CT CHEST W CONT Requesting Physician: Dom Jack Images: [id number] Addl Studies: Provided Clinical History: sob, d-dimer 950 Contrast: With Contrast Medium: [id number] Contrast Amount: 64 mL Contrast Method: Intravenous (IV) Page 1 of 2 PROCEDURE INFORMATION: Exam: CT Chest With Contrast; Diagnostic Exam date and time: 09/24/2020 10:31 PM Age: 30 years old Clinical indication: Other: Pe study; Additional info: SOB, d-dimer 950 TECHNIQUE: Imaging protocol: Diagnostic computed tomography of the chest with contrast. Radiation optimization: All CT scans at this facility use at least one of these dose optimization techniques: automated exposure control; mA and/or kV adjustment per patient size (includes targeted exams where dose is matched to clinical indication); or iterative reconstruction. Contrast material: [id number]; Contrast volume: 64 ml; Contrast route: INTRAVENOUS (IV); COMPARISON: No relevant prior studies available. FINDINGS: Lungs: There are strandy opacities and consolidation seen within the right middle lobe and lingula, findings compatible with atelectasis versus pneumonia. Pleural spaces: Unremarkable. No pneumothorax. No pleural effusion. Heart: Unremarkable. No cardiomegaly. No pericardial effusion. Aorta: Unremarkable. No aortic aneurysm. Lymph nodes: Unremarkable. No enlarged lymph nodes. Gallbladder and bile ducts: Status post cholecystectomy. Bones/joints: Unremarkable. No acute fracture. Soft tissues: Unremarkable. IMPRESSION: 1. There is no evidence for pulmonary emboli. ANA GALO | Final Radiology Report CONFIDENTIALITY STATEMENT This report is intended only for use by the referring physician, and only in accordance with law. If you received this in error, call [phone]. Page 2 of 2 2. Strandy opacities and consolidation seen within the right middle lobe and lingula compatible with atelectasis versus pneumonia. Thank you for allowing us to participate in the care of your patient. Dictated and Authenticated by: Efren Maguire MD 09/24/2020 11:28 PM Central Time ([place] & [place]) - Re-Assessments/Exams Free Text/Narrative Re-Assessment/Exam: 09/24/20 21:46 The patient was advised of the lab results. A CT of her chest with contrast was ordered due to an elevated D-dimer. Free Text/Narrative Re-Assessment/Exam: 09/24/20 23:36 The patient is not on Cipro as indicated in the patient's home medications confirmed with patient. Medication list not updated. Departure - Departure Time of Disposition: 23:39 Disposition: Home, Self-Care 01 Condition: Fair Clinical Impression: URI (upper respiratory infection) Qualifiers: URI type: unspecified URI Qualified Code(s): J06.9 - Acute upper respiratory infection, unspecified - Discharge Information *PRESCRIPTION DRUG MONITORING PROGRAM REVIEWED*: Not Applicable *COPY OF PRESCRIPTION DRUG MONITORING REPORT IN PATIENT MIAN: Not Applicable Instructions: Upper Respiratory Infection, Adult, [id number] Forms: ED Department Discharge Care Plan Goals: The patient was advised of the examination, CT and lab results during the visit. The patient was given an oral dose of Levaquin while in the ED. The patient was discharged with a script for Levaquin (500 mg) #7 to take 1 by mouth daily for 7 days. If the patient has any additional symptoms or concerns, the patient should follow-up with her primary care facility or return to the emergency department. Sepsis Event Note (ED) - Evaluation Sepsis Screening Result: No Definite Risk - Focused Exam Vital Signs: Vital Signs Temp Pulse Resp BP Pulse Ox 09/24/20 19:57 97.3 F 87 24 H 119/81 100 - My Orders Last 24 Hours: My Active Orders 09/24/20 20:27 CULTURE BLOOD [BC] Stat - Assessment/Plan Last 24 Hours: My Active Orders 09/24/20 20:27 CULTURE BLOOD [BC] Stat"
[2020-09-24 21:18] LABS: ANION GAP 13.2 mEq/L (7-13); CHLORIDE,CL 102 mmol/L (98-107); SODIUM,NA 140 mmol/L (136-145)
[2020-09-24] MEDS ORDERED: Iopamidol 612 MG/ML 100 ML Bottle IVPUSH ONE (21:42)
[2020-09-24 21:51] VITALS: BP 119/81; PULSE 87
[2020-09-24] MEDS ORDERED: Iopamidol 755 Mg/ML 100 ML Bottle IVPUSH ONE (21:59)
--- NOTE | 2020-09-24 23:29 | CT ---
PROCEDURE INFORMATION: Exam: CT Chest With Contrast; Diagnostic Exam date and time: 09/24/2020 10:31 PM Age: 30 years old Clinical indication: Other: Pe study; Additional info: SOB, d-dimer 950 TECHNIQUE: Imaging protocol: Diagnostic computed tomography of the chest with contrast. Radiation optimization: All CT scans at this facility use at least one of these dose optimization techniques: automated exposure control; mA and/or kV adjustment per patient size (includes targeted exams where dose is matched to clinical indication); or iterative reconstruction. Contrast material: [id number]; Contrast volume: 64 ml; Contrast route: INTRAVENOUS (IV); COMPARISON: No relevant prior studies available. FINDINGS: Lungs: There are strandy opacities and consolidation seen within the right middle lobe and lingula, findings compatible with atelectasis versus pneumonia. Pleural spaces: Unremarkable. No pneumothorax. No pleural effusion. Heart: Unremarkable. No cardiomegaly. No pericardial effusion. Aorta: Unremarkable. No aortic aneurysm. Lymph nodes: Unremarkable. No enlarged lymph nodes. Gallbladder and bile ducts: Status post cholecystectomy. Bones/joints: Unremarkable. No acute fracture. Soft tissues: Unremarkable. IMPRESSION: 1. There is no evidence for pulmonary emboli. 2. Strandy opacities and consolidation seen within the right middle lobe and lingula compatible with atelectasis versus pneumonia.
[2020-09-24] MEDS ORDERED: Levofloxacin 500 MG Tab PO ONE (23:35)
== END 2020-09-24 23:49 | disposition home or self-care (01) ==
LOC: DL.ED 19:04
DX: J06.9 Acute upper respiratory infection, unspecified (principal); Z20.822 Contact with and (suspected) exposure to COVID-19; Z88.1 Allergy status to other antibiotic agents
CPT/HCPCS: 0240U; 36415; 71260; 80053; 80305-QW; 81001; 81025; 83605; 85025; 85379; 87040; 99283; 99285-25; A9270-GY; Q9967

== ENCOUNTER 2023-02-05 18:59 | Emergency (ER) | payer SELFPAY ==
[2023-02-05 19:22] LABS: BASOPHILS PERCENT AUTO 0.2 % (0.0-1.0); EOSINOPHILS PERCENT AUTO 0.2 % (1.0-3.0); HEMATOCRIT 41.1 % (37.0-47.0); HEMOGLOBIN 14.2 g/dL (12.0-16.0); LYMPHOCYTES PERCENT AUTO 17.3 % (20.5-50.1); MEAN CORPUSCULAR HEMOGLOBIN 33.7 pg (27.0-34.0); MEAN CORPUSCULAR HGB CONC 34.5 g/dL (33.0-35.0); MEAN CORPUSCULAR VOLUME 97.6 fL (80-100); MONOCYTES PERCENT AUTO 6.1 % (2-8); NEUTROPHILS PERCENT AUTO 76.2 % (42.2-75.2); PLATELET COUNT,PLT 312 10^3/uL (150-450); RED BLOOD CELL COUNT 4.21 10^6/uL (4.2-5.4); WHITE BLOOD CELL COUNT,WBC 8.2 10^3/uL (5.0-10.0)
[2023-02-05 19:37] LABS: HCG QUALITATIVE,SERUM NEGATIVE (NEGATIVE)
[2023-02-05 19:42] LABS: A/G RATIO 0.9; ALANINE AMINOTRANSFERASE,ALT 97 U/L (14-59); ALBUMIN 3.8 g/dL (3.4-5.0); ALKALINE PHOSPHATASE 83 U/L (46-116); ANION GAP 13.3 mEq/L (7-13); ASPARTATE AMNIOTRANSFERASE,AST 60 U/L (15-37); BILIRUBIN TOTAL 0.4 mg/dL (0.2-1.0); BLOOD UREA NITROGEN,BUN 5 mg/dL (7-18); BUN/CREATININE RATIO 5.6 (No establ ref range); C-REACTIVE PROTEIN 0.14 ng/dL (<=0.30); CALCIUM 8.4 mg/dL (8.5-10.1); CARBON DIOXIDE,CO2 26 mmol/L (21-32); CHLORIDE,CL 104 mmol/L (98-107); CREATININE 0.89 mg/dL (0.55-1.02); EST CRCL DRUG DOSING (CG) 74.37 mL/min; ETHANOL BLOOD MEDICAL 87 mg/dL (0); GLUCOSE RANDOM 91 mg/dL (70-99); LIPASE 25 U/L (16-77); POTASSIUM,K 3.3 mmol/L (3.5-5.1); PROTEIN TOTAL,TP 7.8 g/dL (6.4-8.2); SODIUM,NA 140 mmol/L (136-145)
[2023-02-05 19:43] LABS: ESTIMATED GFR 88 mL/min (>=60)
[2023-02-05] MEDS ORDERED: Acetaminophen 500 MG Tab PO ONE (19:59)
[2023-02-05] MEDS ORDERED: Lactated Ringers 1,000 ML IV ONE (19:59)
[2023-02-05] MEDS ORDERED: Potassium Chloride 10 MEQ Tab.ER PO ONE (20:00)
[2023-02-05] MEDS ORDERED: Bacitracin Oint 1 GM U/D Packet TOP ONE (20:24)
[2023-02-05] MEDS ORDERED: Lidocaine 2% with EPINEPHrine 1:200,000 20 ML SDV INJECT ONE (20:24)
== END 2023-02-05 21:03 | disposition home or self-care (01) ==
LOC: DL.ED 18:59
DX: S62.665A Nondisplaced fracture of distal phalanx of left ring finger, initial encounter for closed fracture (principal); S02.2XXA Fracture of nasal bones, initial encounter for closed fracture; S60.111A Contusion of right thumb with damage to nail, initial encounter; S50.12XA Contusion of left forearm, initial encounter; S09.90XA Unspecified injury of head, initial encounter; F17.210 Nicotine dependence, cigarettes, uncomplicated; Z88.1 Allergy status to other antibiotic agents; Z79.899 Other long term (current) drug therapy; Z90.49 Acquired absence of other specified parts of digestive tract; Y04.8XXA Assault by other bodily force, initial encounter
CPT/HCPCS: 11730; 36415; 70450; 70486; 72125; 73090; 73140; 80053; 80307; 83690; 84703; 85025; 86140; 99285; A9270; J3490

== ENCOUNTER 2023-02-10 22:44 | Emergency (ER) | payer SELFPAY ==
[2023-02-10 23:22] LABS: BASOPHILS PERCENT AUTO 0.1 % (0.0-1.0); EOSINOPHILS PERCENT AUTO 0.1 % (1.0-3.0); HEMATOCRIT 41.7 % (37.0-47.0); HEMOGLOBIN 14.7 g/dL (12.0-16.0); LYMPHOCYTES PERCENT AUTO 6.9 % (20.5-50.1); MEAN CORPUSCULAR HEMOGLOBIN 33.9 pg (27.0-34.0); MEAN CORPUSCULAR HGB CONC 35.3 g/dL (33.0-35.0); MEAN CORPUSCULAR VOLUME 96.3 fL (80-100); MONOCYTES PERCENT AUTO 4.7 % (2-8); NEUTROPHILS PERCENT AUTO 88.2 % (42.2-75.2); PLATELET COUNT,PLT 268 10^3/uL (150-450); RED BLOOD CELL COUNT 4.33 10^6/uL (4.2-5.4); WHITE BLOOD CELL COUNT,WBC 15.7 10^3/uL (5.0-10.0)
[2023-02-10 23:33] LABS: A/G RATIO 0.9; ALANINE AMINOTRANSFERASE,ALT 59 U/L (14-59); ALBUMIN 3.7 g/dL (3.4-5.0); ALKALINE PHOSPHATASE 95 U/L (46-116); ANION GAP 11.5 mEq/L (7-13); ASPARTATE AMNIOTRANSFERASE,AST 33 U/L (15-37); BILIRUBIN TOTAL 0.8 mg/dL (0.2-1.0); BLOOD UREA NITROGEN,BUN 6 mg/dL (7-18); BUN/CREATININE RATIO 6.9 (No establ ref range); C-REACTIVE PROTEIN 9.75 ng/dL (<=0.30); CALCIUM 8.9 mg/dL (8.5-10.1); CARBON DIOXIDE,CO2 29 mmol/L (21-32); CHLORIDE,CL 97 mmol/L (98-107); CREATININE 0.87 mg/dL (0.55-1.02); EST CRCL DRUG DOSING (CG) 76.08 mL/min; GLUCOSE RANDOM 106 mg/dL (70-99); HCG QUALITATIVE,SERUM NEGATIVE (NEGATIVE); LIPASE 18 U/L (16-77); POTASSIUM,K 3.5 mmol/L (3.5-5.1); SODIUM,NA 134 mmol/L (136-145)
[2023-02-10 23:34] LABS: ESTIMATED GFR 90 mL/min (>=60); ETHANOL BLOOD MEDICAL < 3 mg/dL (0)
[2023-02-10 23:40] LABS: LACTIC ACID 2.2 mmol/L (0.4-2.0)
[2023-02-10] MEDS ORDERED: Sodium Chloride 0.9% 1,000 ML IV ONE (23:45)
[2023-02-10] MEDS ORDERED: HYDROmorphone 1 MG/ML Syringe IVPUSH ONE (23:45)
[2023-02-11 00:21] LABS: METHAMPHETAMINES,URINE POSITIVE (NEGATIVE)
[2023-02-11 00:22] LABS: AMPHETAMINES,URINE NEGATIVE (NEGATIVE); BARBITURATES,URINE NEGATIVE (NEGATIVE); BENZODIAZEPINE,URINE NEGATIVE (NEGATIVE); MDMA (ECSTASY), URINE NEGATIVE (NEGATIVE); METHADONE,URINE NEGATIVE (NEGATIVE); OPIATES,URINE NEGATIVE (NEGATIVE); OXYCODONE,URINE NEGATIVE (NEGATIVE); PHENCYCLIDINE,URINE NEGATIVE (NEGATIVE); TCA,URINE NEGATIVE (NEGATIVE)
[2023-02-11 00:23] LABS: APPEARANCE,URINE CLEAR (CLEAR); BILIRUBIN,URINE NEGATIVE (NEGATIVE); COLOR,URINE YELLOW (YELLOW); GLUCOSE,URINE NEGATIVE (NEGATIVE); KETONES,URINE NEGATIVE (NEGATIVE); LEUKOCYTE ESTERASE,URINE NEGATIVE (NEGATIVE); NITRITE,URINE POSITIVE (NEGATIVE); OCCULT BLOOD,URINE TRACE-INTACT (NEGATIVE); PROTEIN,URINE 30 (NEGATIVE)
[2023-02-11 00:25] LABS: EPITHELIAL CELLS,URINE FEW /HPF (NOT SEEN); RBC,URINE 0-5 /HPF (0-5); WBC,URINE 0-5 /HPF (0-5/HPF)
[2023-02-11 00:26] LABS: BACTERIA,URINE FEW /HPF (0-FEW/HPF)
[2023-02-11] MEDS ORDERED: Ciprofloxacin 500 MG Tab PO ONE (01:28)
[2023-02-11] MEDS ORDERED: Ibuprofen 600 MG Tab PO ONE (02:10)
[2023-02-11] MEDS ORDERED: Acetaminophen 500 MG Tab PO ONE (04:16)
[2023-02-11 05:42] VITALS: BP 139/70; PULSE 96
== END 2023-02-11 05:01 | disposition home or self-care (01) ==
LOC: DL.ED 22:44
DX: F15.129 Other stimulant abuse with intoxication, unspecified (principal); F12.90 Cannabis use, unspecified, uncomplicated; P74.22 Hyponatremia of newborn; N30.00 Acute cystitis without hematuria; K21.9 Gastro-esophageal reflux disease without esophagitis; F17.210 Nicotine dependence, cigarettes, uncomplicated; Z88.1 Allergy status to other antibiotic agents
CPT/HCPCS: 36415; 74176; 80053; 80305; 80307; 81001; 83605; 83690; 84703; 85025; 86140; 87086; 96361; 96374; 99285; A9270; J1170; J7030; 99284